=== PATIENT | female | born 1980 | race Caucasian/White ===

== ENCOUNTER → 2019-11-26 14:30 | Outpatient (BNVA) | payer MEDICAID, SELFPAY | PROVIDERS: Family Provider Nurse Practitioner; PCP Nurse Practitioner Family; Visit Provider Nurse Practitioner Family | DX: E03.9 Hypothyroidism, unspecified (principal); K21.9 Gastro-esophageal reflux disease without esophagitis; G47.10 Hypersomnia, unspecified | CPT/HCPCS: 80053; 84436; 84443; 84480; 85025 ==

== ENCOUNTER 2019-12-02 13:20 | Outpatient (CLI) | payer MEDICAID, SELFPAY ==
--- NOTE | 2019-12-02 14:15 | US_ITS ---
WS: [id number] THYROID ULTRASOUND HISTORY: hypothyroidism COMPARISON: None available. Right lobe: 3.0 cm x 1.2 cm x 1.6 cm. Volume: 2.8 cm3. Normal size and echotexture. No significant are dominant nodules are present. Left lobe: 3.3 cm x 1.2 cm x 1.0 cm. Volume: 2.2 cm3. Normal size and echotexture. No significant or dominant nodules are present. Isthmus: 0.3 mm. US/US thyroid [id number] IMPRESSION: Normal thyroid ultrasound.
== END 2019-12-02 13:21 | disposition home or self-care (01) ==
PROVIDERS: Family Provider Nurse Practitioner Family; PCP Nurse Practitioner Family; Visit Provider Nurse Practitioner Family
DX: E03.9 Hypothyroidism, unspecified (principal)
CPT/HCPCS: 76536

== ENCOUNTER 2019-12-18 09:06 | Outpatient (CLI) | payer MEDICAID, SELFPAY ==
--- NOTE | 2019-12-18 10:15 | US_ITS ---
WS: [id number] ULTRASOUND ABDOMEN CLINICAL INFORMATION: elevated liver enzymes COMPARISON: None. FINDINGS: Liver Size: Enlarged Craniocaudal length: 16.6 cm. Echogenicity: Normal. Surface nodularity: None. Mass (size and location): None. Bile ducts Intrahepatic ducts: Normal. Common bile duct diameter: 3.6 mm. Gallbladder Removed Pancreas Normal as visualized. Right kidney: Normal. Hydronephrosis: None. Size: 9.4 cm x 3.6 cm x 4.5 cm Abdominal aorta and IVC Visualized portions are normal. Ascites: None. US/US liver [id number] IMPRESSION: 1. Hepatomegaly measuring 16.6 cm 2. Gallbladder has been removed. 3. No hydronephrosis in right kidney.
== END 2019-12-18 09:07 | disposition home or self-care (01) ==
PROVIDERS: Family Provider Nurse Practitioner Family; PCP Nurse Practitioner Family; Visit Provider Nurse Practitioner Family
DX: R74.8 Abnormal levels of other serum enzymes (principal); R16.0 Hepatomegaly, not elsewhere classified
CPT/HCPCS: 76705

== ENCOUNTER → 2019-12-21 11:49 | Outpatient (BNVA) | payer MEDICAID, SELFPAY | PROVIDERS: Family Provider Nurse Practitioner Family; PCP Nurse Practitioner Family; Visit Provider Counselor Professional | DX: F41.1 Generalized anxiety disorder (principal) | CPT/HCPCS: 90834 ==

== ENCOUNTER → 2020-01-18 10:24 | Outpatient (BNVA) | payer MEDICAID, SELFPAY | PROVIDERS: Family Provider Nurse Practitioner Family; PCP Nurse Practitioner Family; Visit Provider Nurse Practitioner | DX: F42.4 Excoriation (skin-picking) disorder (principal); F41.1 Generalized anxiety disorder; F33.0 Major depressive disorder, recurrent, mild | CPT/HCPCS: 99213 ==

== ENCOUNTER 2020-02-10 02:11 | Emergency (ER) | payer MEDICAID, SELFPAY | END 2020-02-10 03:54 | disposition admitted as inpatient to this hospital (09) | LOC: ER 03-03 12:17 | PROVIDERS: Emergency Provider Emergency Medicine; Family Provider Nurse Practitioner Family; PCP Nurse Practitioner Family | DX: Z01.89 Encounter for other specified special examinations (principal) ==

== ENCOUNTER 2020-02-10 02:11 | Observation (INO) | payer MEDICAID, SELFPAY ==
[2020-02-10] VITALS (15 sets, daily range): BP systolic 92–141; BP diastolic 47–102; PULSE 69–92; RESP 12–22; TEMP 36.4–37.1; O2SAT 94–100; BMI 42.5
--- NOTE | 2020-02-10 02:14 | ED_ITS ---
Entered by Hanna Burnham, acting as scribe for Alhaji Guan MD HPI - Skin/Abscess/Foreign Bdy General: Chief complaint: Airway/Esophagus Foreign Body Stated complaint: FOOD STUCK IN THROAT Time Seen by Provider: 02/10/20 02:14 History of Present Illness: HPI narrative: 39 yo f came to the er by [facility] for foreign body stuck in throat. Onset was 2300 last night. Pt states that she ate a piece of meat and it got stuck in her throat, usually she said that she throws up and it comes back up and this time is has not came back up this time. Pt said that she has tried drinking soda and water to get it down. Pt said that she has been vomiting and also has a headache because of vomiting. MD complaint: foreign body (peice of meat) Onset (ago): day(s) (2300 last night ) Tetanus up to date: unsure Location: neck Severity: mild Quality: foreign body sensation Pain Consistency: constant Relieving factors: none Exacerbating factors: none Context: none Associated symptoms: Reports vomiting; Deny chills or fever(s) Treatments prior to arrival: other (tried drinking some fluids to help it pass and it did not work) Review of Systems General: Reports: other (negative unless marked) Const: Denies: fever, chills, body aches or change in appetite Eyes: Denies: blurry vision or eye discomfort ENMT: Reports: throat pain Card: Denies: chest pain Resp: Denies: shortness of breath GI: Reports: vomiting : Denies: painful urination Musc: Denies: neck pain or back pain Skin/Breast: Denies: rash Neuro: Reports: headache Psych: Denies: depression David/Lymph: Denies: easy bruising All/Imm: Denies: hives PFSH ED PFSH: Medical History (Updated 02/10/20 @ 02:59 by Alhaji Guan MD) Chronic GERD Excoriation (skin-picking) disorder Generalized anxiety disorder Hypothyroidism Major depressive disorder, recurrent, mild Family History (Updated 11/26/19 @ 13:55 by Hanna Galindo LPN) Father Cancer stomach Heart disease Stroke Mother Hypertension Hyperlipidemia Family/Other Cancer breast Social History (Updated 11/26/19 @ 13:56 by Hanna Galindo LPN) Smoking and tobacco status: never smoked Smoking risk assessment/counseling performed?: No Alcohol intake: never Lives independently: Yes Household members: significant other Marital status: Single History of recent travel: No Female Reproductive History: Para: 1 Physical Exam Const: COMMON NORMALS: no apparent distress, oriented x3 and healthy appearing HENMT: COMMON NORMALS: normocephalic and head/scalp atraumatic HEAD & SCALP: normocephalic and atraumatic Eye: COMMON NORMALS: PERRL and EOMs intact bilaterally PUPIL: Yes PERRL Neck/C-Spine: COMMON NORMALS: full ROM and supple Chest: COMMONS NORMALS: inspection of chest normal and palpation of chest normal Resp: COMMON NORMALS: normal respiratory effort, no retractions, no use of ac cessory muscles and clear to auscultation bilaterally AUSCULTATION: clear to auscultation bilaterally Cardio: COMMON NORMALS: regular rate, regular rhythm and no murmurs RATE: regular rate RHYTHM: regular rhythm GI: COMMON NORMALS: normal to inspection, nondistended, normoactive bowel sounds, soft to palpation, non-tender and no masses PALPATION: Yes soft Extremity: COMMON NORMALS: normal to inspection and full ROM Neuro: COMMON NORMALS: oriented x3, moves all extremities and no focal motor deficits Psych: COMMON NORMALS: mental status grossly normal, thought process normal and cooperative THOUGHT PROCESS: normal thought process Skin: COMMON NORMALS: no rashes or lesions noted and no wounds GENERAL SKIN EXAM: no rashes or lesions noted Course Vital Signs: Vital signs: Vital Signs Temperature 98.2 F 02/10/20 02:14 Pulse Rate 87 02/10/20 02:14 Respiratory Rate 20 H 02/10/20 02:14 Blood Pressure 141/102 02/10/20 02:14 Pulse Oximetry 99 02/10/20 02:14 MDM - Skin/Abscess/Foreign Bdy MDM Narrative: Medical decision making narrative: Patient presents with an esophageal food impaction. Patient given glucagon and nitro and has not been able to pass a foreign body. I spoke to Dr. Pop who recommended admission and he is to take her to the OR at 7 AM to remove the food impaction. Patient has been stable while in the ER. Imaging Data^: CXR: Attestation: I personally reviewed and interpreted this imaging study as follows: My impression: no acute abnormality xr soft tissue neck: Attestation: I personally reviewed and interpreted this imaging study as follows: My impression: no acute abnormality Discharge Plan Discharge Patient Disposition: Admitted As Inpatient Clinical Impression: Food impaction of esophagus Qualifiers: Encounter type: initial encounter Qualified Code(s): T18.128A - Food in esophagus causing other injury, initial encounter Condition: Stable Referrals: Pamella Masterson FNP-C [Primary Care Provider] - Coding Level of Care Code ED Substation Supervisor for Chg Fwd Exam Comprehensive The documentation recorded by the Tej ozuna Stephanie Lyn, accurately reflects the service I personally performed and the decisions made by me, Alhaji Guan MD
[2020-02-10] MEDS: nitroglycerin 0.4 mg sublingual Tablet SUBLINGUAL (02:27)
--- NOTE | 2020-02-10 02:59 | XR_ITS ---
WS: [id number] SOFT TISSUE NECK 2 VIEW(S) TECHNIQUE: AP and lateral views of the neck in soft tissue technique are performed. HISTORY: food impaction COMPARISON: None available. The lateral projection there is no dilatation or distention of the hypopharynx. Epiglottis is normal. Soft tissues in the esophagus at the C6-7 level are obscured by the patient's shoulders. On the AP r adiograph there is slight narrowing at the C5-6 level. Epiglottis is normal. XR/XR soft tissue neck [id number] IMPRESSION: Mild narrowing of the esophagus at the C5-6 level. No distention of the hypopha rynx. For further evaluation barium swallow can be obtained.
--- NOTE | 2020-02-10 02:59 | XR_ITS ---
WS: [id number] PORTABLE CHEST HISTORY: esophageal foreign body COMPARISON: None available. Lungs are clear and well expanded. No pleural effusion or pneumothorax. Cardiac size: Normal. Mediastinum/Aorta: Normal mediastinum. No osseous abnormality seen. XR/XR chest 1V portable [id number] IMPRESSION: Unremarkable portable chest.
[2020-02-10 03:23] LABS: Basophils % 0.3 %; Eosinophils # 0.1 10^3/uL (0.0-0.8); Eosinophils % 0.6 %; Hematocrit 44.4 % (37.0-47.0); Lymphocytes # 1.5 10^3/uL (0.8-4.8); Mean Corpuscular HGB Conc 31.5 g/dL (30.0-36.0); Mean Corpuscular Hemoglobin 27.8 pg (28.0-34.0); Mean Corpuscular Volume 88.3 fL (81-99); Mean Platelet Volume 10.2 fL (7.4-10.4); Monocytes # 0.4 10^3/uL (0.2-0.9); Monocytes % 4.3 %; Neutrophils # 7.3 10^3/uL (1.8-7.7); Neutrophils % 78.5 %; Nucleated Red Blood Cells % 0 %; Platelet Count 338 10^3/cmm (130-400); Red Blood Count 5.03 10^6/uL (4.1-5.3); Red Cell Distribution Width 12.4 % (12.1-15.1); White Blood Count 9.3 10^3/uL (4.0-10.0)
[2020-02-10] MEDS: sodium chloride 0.9% 1,000 ML 100 ML IV (05:01)
--- NOTE | 2020-02-10 05:24 | P.HP_ITS ---
Same Day Surgery H&P Indication for Procedure/HPI DATE OF PROCEDURE: February 10, 2020 CHIEF COMPLAINT/INDICATIONFOR SURGICAL PROCEDURE: Difficulty in swallowing PREOP DIAGNOSIS: Food Impaction PLANNED PROCEDRUE: Esophagogastroduodenoscopy with possible food disimpaction Chief Complaint: I have a piece of meat stuck in my throat History of present illness: This is a pleasant 39 years old female patient with history of GERD and anxiety and depression, patient had her dinner about 11 PM in the form of pull pork and she had food impaction and had difficulty in swallowing w multiple episodes of vomiting without obvious comfort, subsequently the patient presented to the emergency department where she was evaluated and undergone x-rays of the neck and the chest that showed negative findings, also upon further inquiry patient denies any hematemesis yet she does complain of some discomfort when she swallows likely due to repeated vomiting. She reports that she had previous episodes before but she never had to come to the hospital with that regard also she does have dentures but the lower part are not fitting well and yesterday she was chewing without them. General surgery was consulted for further evaluation and potential management ROS All systems have been reviewed reviewed negative except as per the above Medications/Allergies* Home Medications Medication Instructions Recorded Confirmed Type erenumab-aooe SUBCUT 11/26/19 01/18/20 History ibuprofen 800 mg tablet 800 mg PO ONCE PRN tab 11/26/19 01/18/20 History sumatriptan succinate 50 mg tablet 50 mg PO ONCE PRN 11/26/19 01/18/20 History prenat.vits,yovanny,asi-hksm-umbdh 1 tab PO DAILY 01/18/20 01/18/20 History Allergies/Adverse Reactions Allergy/AdvReac Type Severity Reaction Status Date / Time codeine Allergy swelling Verified 02/10/20 05:27 Penicillins Allergy rash Verified 02/10/20 05:27 tetracycline Allergy vomiting Verified 02/10/20 05:27 Current Medications: Generic Name Dose Route Start Last Admin Trade Name Freq PRN Reason Stop Dose Admin Sodium Chloride 1,000 mls @ 100 mls/hr 02/10/20 04:19 02/10/20 05:01 Sodium Chloride 0.9% IV 100 mls/hr .Q10H IRAJ Administration Pertinent History/Comorbid Conditions* Medical History (Updated 02/10/20 @ 02:59 by Alhaji Guan MD) Chronic GERD Excoriation (skin-picking) disorder Generalized anxiety disorder Hypothyroidism Major depressive disorder, recurrent, mild Family History (Updated 11/26/19 @ 13:55 by Hanna Galindo LPN) Heart disease Father Hyperlipidemia Mother Cancer Father stomach Family/Other breast Hypertension Mother Stroke Father Social History Smoking and tobacco status: never smoked Smoking risk assessment/counseling performed?: No Alcohol intake: never Lives independently: Yes Household members: significant other Marital status: Single History of recent travel: No Pertinent Exam Findings alert, oriented x 3, clear to auscultation bilaterally, regular rate & rhythm and procedure specific exam findings (Head and neck examination PERRLA no masses no cervical lymphadenopathy no jaundice and no crepitus) Abdominal examination nontender nondistended soft no organomegaly or peritonitis or guarding Obese Recommendations Surgery/Procedure today (After thorough history physical examination and reviewing the chart and images with my personal interpretation, I counseled the patient for EGD and possible food disimpaction in the OR.) Other Plans: Indications risks benefits and alternatives all discussed with the patient and she did agree to proceed. Informed consent per chart Coding Level of Care Code Acute Underwriting Support Specialist for [employer]
--- NOTE | 2020-02-10 06:04 | PC.NURSE ---
Patient to surgery.
--- NOTE | 2020-02-10 06:30 | P.ANESASSM_ITS ---
Pre-Anesthetic Assessment Pre-Anesthetic Assessment: Height/Weight: Height 1.6 m Weight 95.708 kg Temp Pulse Resp BP Pulse Ox 98.4 F 92 17 131/84 96 02/10/20 04:15 02/10/20 04:15 02/10/20 04:15 02/10/20 04:15 02/10/20 04:15 Preop Diagnosis: Food Impaction Proposed Procedure: Operation Date: 02/10/20 07:00 Proposed Procedures p EGD(Not Applicable) - Chace Pop MD Last intake: Intake Last Liquid Date 02/09/20 Last Liquid Time 23:00 Last Solid Date 02/09/20 Last Solid Time 23:00 Exam: Pre-Anes Outpt Exam: alert, oriented x 3, clear to auscultation bilaterally and regular rate & rhythm Airway: Submandibular: WNL Cervical ROM: WNL MP: 1 Additional comments: edentulous GI: GI: GERD Metabolic: Metabolic: Thyroid (replacement x 10y, without recent change) Musc/skel: Musc/skel: Lower Back Pain Comments: nonradiating Neuropsych: Neuropsych: Anxiety, Depression and CARLISLE Anesthetic Plan: ASA status: 3E Anesthesia: General and Regional (specify b elow) Meds/Allergies Current Medications: Current Medications Generic Name Dose Route Start Last Admin Trade Name Freq PRN Reason Stop Dose Admin Sodium Chloride 1,000 mls @ 100 m ls/hr 02/10/20 04:19 02/10/20 05:01 Sodium Chloride 0.9% IV 100 mls/hr .Q10H IRAJ Administration PFSH Anesthesia PFSH: Medical History (Updated 02/10/20 @ 02:59 by Alhaji Guan MD) Chronic GERD Excoriation (skin-picking) disorder Generalized anxiety disorder Hypothyroidism Major depressive disorder, recurrent, mild Family History (Updated 11/26/19 @ 13:55 by Hanna Galindo LPN) Father Cancer stomach Heart disease Stroke Mother Hypertension Hyperlipidemia Family/Other Cancer breast Social History (Updated 11/26/19 @ 13:56 by Hanna Galindo LPN) Smoking and tobacco status: never smoked Smoking risk assessment/counseling performed?: No Alcohol intake: never Lives independently: Yes Household members: significant other Marital status: Single History of recent travel: No Female Reproductive History: Para: 1 Data Anesthesia CBC & Chem 7: 02/10/20 03:08 Other Labs: Laboratory Results - last 48 hr 02/10/20 03:08 WBC 9.3 RBC 5.03 Hgb 14.0 Hct 44.4 MCV 88.3 MCH 27.8 L MCHC 31.5 RDW 12.4 Plt Count 338 MPV 10.2 Neut % (Auto) 78.5 Lymph % (Auto) 16.0 [place] % (Auto) 4.3 Eos % (Auto) 0.6 Baso % (Auto) 0.3 Neut # (Auto) 7.3 Lymph # (Auto) 1.5 [place] # (Auto) 0.4 Eos # (Auto) 0.1 Baso # (Auto) 0.0 Nucleated RBC % (auto) 0 Nucleated RBCs # 0.0 Cardiac Studies: No Data to Display
[2020-02-10] MEDS: sodium chloride 0.9% 1,000 ML 30 ML IV (06:44)
[2020-02-10] MEDS: midazolam 1 mg/mL INJ 2 mL 2 MG IVP (06:45)
--- NOTE | 2020-02-10 07:24 | FL_ITS ---
WS: [id number] Modified barium swallow, 02/10/2020 Clinical Data: Oropharyngeal dysphagia Comparison: None. Fluoroscopy time: 1.6 minutes. Findings: Patient had difficulty in chewing. When swallowing there was minimal residue in the oral cavity on th e sweta cracker. There was no penetration or aspiration. The patient swallowed the barium tablet whi ch passed normally through the pharynx and into the esophagus and finally the stomach. FL/FL barium swallow modifd [id number] Impression: 1. Difficulty in chewing. 2. No significant pharyngeal residue, penetration or aspiration.
[2020-02-12 13:17] LABS: H. Pylori / CLO Test Negative
== END 2020-02-10 10:00 | disposition home or self-care (01) ==
LOC: ER 03:20 → MEDSURG 03:37
PROVIDERS: Admitting Provider Surgery; Emergency Provider Emergency Medicine; Family Provider Nurse Practitioner Family; PCP Nurse Practitioner Family; Visit Provider Surgery
PROC: 0DJ08ZZ Inspection of Upper Intestinal Tract, Via Natural or Artificial Opening Endoscopic (ICD-10-PCS; CPT 43235; principal; 2020-02-10 07:00)
DX: T18.128A Food in esophagus causing other injury, initial encounter (principal); X58.XXXA Exposure to other specified factors, initial encounter; K21.9 Gastro-esophageal reflux disease without esophagitis; F41.9 Anxiety disorder, unspecified; F33.9 Major depressive disorder, recurrent, unspecified; Z82.49 Family history of ischemic heart disease and other diseases of the circulatory system
CPT/HCPCS: 12345; 36415; 43239; 43247; 70360; 71045; 74230; 85025; 87077; 92611; 96372; 99282; 99285; G0378; J0330; J1610; J2001; J2250; J2704; J3010; J7030

== ENCOUNTER 2020-02-10 02:11 | Emergency (ER) | payer MEDICAID, SELFPAY | END 2020-02-10 03:54 | disposition admitted as inpatient to this hospital (09) | LOC: ER 02-12 11:43 | PROVIDERS: Emergency Provider Emergency Medicine; Family Provider Nurse Practitioner Family; PCP Nurse Practitioner Family | DX: Z01.89 Encounter for other specified special examinations (principal) ==

== ENCOUNTER 2020-03-14 09:31 | Outpatient (CLI) | payer MEDICAID, SELFPAY ==
--- NOTE | 2020-03-14 09:51 | FL_ITS ---
WS: [id number] MODIFIED BARIUM SWALLOW HISTORY: Other dysphagia FLUOROSCOPY TIME: 1.1 minutes. Modified barium swallow was performed by the speech pathologist. Fluoroscopy was provided with the pa tient in a lateral projection. Multiple food consistencies were provided. Patient swallowed all food consistencies without difficulty. No laryngeal penetration or aspiration. Barium tablet was swallowed without difficulty. FL/FL barium swallow modifd [id number] IMPRESSION: Normal modified swallowing exam. Please see speech therapist report also for recommendations.
== END 2020-03-14 09:32 | disposition home or self-care (01) ==
LOC: RAD 09:35
PROVIDERS: Family Provider Nurse Practitioner Family; PCP Nurse Practitioner Family; Visit Provider Surgery
DX: R13.19 Other dysphagia (principal)
CPT/HCPCS: 74230; 92611

== ENCOUNTER → 2020-04-20 08:10 | Outpatient (BNVA) | payer MEDICAID, SELFPAY | PROVIDERS: Family Provider Nurse Practitioner Family; PCP Nurse Practitioner Family; Visit Provider Counselor Professional | DX: F33.0 Major depressive disorder, recurrent, mild (principal); F41.1 Generalized anxiety disorder; F42.4 Excoriation (skin-picking) disorder | CPT/HCPCS: 90832; 90834 ==

== ENCOUNTER → 2020-04-21 07:42 | Outpatient (BNVA) | payer MEDICAID, SELFPAY | PROVIDERS: Family Provider Nurse Practitioner Family; PCP Nurse Practitioner Family; Visit Provider Nurse Practitioner | DX: F33.0 Major depressive disorder, recurrent, mild (principal); F41.1 Generalized anxiety disorder | CPT/HCPCS: 80053; 82607; 84443; 99214 ==

== ENCOUNTER → 2020-05-06 09:19 | Outpatient (BNVA) | payer MEDICAID, SELFPAY | PROVIDERS: Family Provider Nurse Practitioner Family; PCP Nurse Practitioner Family; Visit Provider Nurse Practitioner | DX: Z11.59 Encounter for screening for other viral diseases (principal) | CPT/HCPCS: 86705; 86706; 86709; 86803; 87340 ==

== ENCOUNTER 2020-05-17 20:00 | Outpatient (CLI) | payer MEDICAID, SELFPAY | END 2020-05-17 20:01 | disposition home or self-care (01) | LOC: SLEEP 05-18 10:10 | PROVIDERS: Family Provider Nurse Practitioner Family; PCP Nurse Practitioner Family; Visit Provider Nurse Practitioner Family | DX: G47.10 Hypersomnia, unspecified (principal) | CPT/HCPCS: 95810 ==

== ENCOUNTER → 2020-05-25 08:17 | Outpatient (BNVA) | payer MEDICAID, SELFPAY | PROVIDERS: Family Provider Nurse Practitioner Family; PCP Nurse Practitioner Family; Visit Provider Counselor Professional | DX: F41.1 Generalized anxiety disorder (principal); F33.0 Major depressive disorder, recurrent, mild | CPT/HCPCS: 90834 ==

== ENCOUNTER 2020-05-26 06:58 | Outpatient (CLI) | payer MEDICAID, SELFPAY ==
--- NOTE | 2020-05-26 07:15 | US_ITS ---
WS: [id number] RIGHT UPPER QUADRANT ULTRASOUND HISTORY: Increased liver enzymes COMPARISON: 12/18/2019 Liver: 13.1 cm in length. Normal size and echogenicity with no intrahepatic dilatation. No mass. Gallbladder: Prior cholecystectomy. CBD: 0.3 cm Pancreas: Pancreas is normal. There is an ovoid cystic mass measuring 2.0 x 2.0 cm just to the RIGHT and superior to the pancreatic head. Not identified on the prior study. Right kidney: 9.9 cm in length. Normal echogenicity with no mass or hydronephrosis. Aorta and IVC: Unremarkable. No ascites. US/US liver [id number] IMPRESSION: 1. Prior cholecystectomy. 2. Negative liver. 3. Cystic mass with a maximum diameter of 2.0 cm superior and to the RIGHT at pancreatic head of undetermined etiology. Could be fluid in the duodenum. This was not present on the prior study. Recommend additional follow-up. Short-term ultrasound follow-up in 6-[address] evaluation.
== END 2020-05-26 06:59 | disposition home or self-care (01) ==
PROVIDERS: PCP Nurse Practitioner Family; Visit Provider Nurse Practitioner
DX: R94.5 Abnormal results of liver function studies (principal); R16.0 Hepatomegaly, not elsewhere classified
CPT/HCPCS: 76705

== ENCOUNTER → 2020-06-22 08:56 | Outpatient (BNVA) | payer MEDICAID, SELFPAY | PROVIDERS: PCP Nurse Practitioner Family; Visit Provider Counselor Professional | DX: F41.1 Generalized anxiety disorder (principal); F33.0 Major depressive disorder, recurrent, mild | CPT/HCPCS: 90834 ==

== ENCOUNTER 2020-06-30 20:00 | Outpatient (CLI) | payer MEDICAID, SELFPAY | END 2020-06-30 20:01 | disposition home or self-care (01) | LOC: SLEEP 07-01 08:50 | PROVIDERS: PCP Nurse Practitioner Family; Visit Provider Nurse Practitioner | DX: G47.33 Obstructive sleep apnea (adult) (pediatric) (principal) | CPT/HCPCS: 95811 ==

== ENCOUNTER → 2020-07-04 07:33 | Outpatient (BNVA) | payer MEDICAID, SELFPAY | PROVIDERS: PCP Nurse Practitioner Family; Visit Provider Psychiatry & Neurology Psychiatry | DX: F33.0 Major depressive disorder, recurrent, mild (principal); F41.1 Generalized anxiety disorder | CPT/HCPCS: 99214 ==

== ENCOUNTER → 2020-07-06 08:32 | Outpatient (BNVA) | payer MEDICAID, SELFPAY | PROVIDERS: PCP Nurse Practitioner Family; Visit Provider Counselor Professional | DX: F41.1 Generalized anxiety disorder (principal); F33.0 Major depressive disorder, recurrent, mild | CPT/HCPCS: 90834 ==

== ENCOUNTER 2020-07-12 09:04 | Outpatient (CLI) | payer MEDICAID, SELFPAY ==
--- NOTE | 2020-07-12 09:30 | US_ITS ---
WS: [id number] ULTRASOUND ABDOMEN LIMITED CLINICAL INFORMATION: pancreas cyst COMPARISON: August 07, 2018 December 18, 2019 FINDINGS: Liver Size: Upper limits of normal Craniocaudal length: 16.1 cm. Echogenicity: Fatty infiltration Surface nodularity: None. Mass (size and location): None. Bile ducts Intrahepatic ducts: Normal. Common bile duct diameter: 0.4 cm. Gallbladder Removed Pancreas Again seen is the hypoechoic lesion medial to the head of the pancreas measuring 2.6 x 1.6 x 2.2 CM. Recommend further evaluation with CT Right kidney: Normal. Hydronephrosis: None. Size: 9.1 cm x 3.9 cm x 3.8 cm. Abdominal aorta and IVC Visualized portions are normal. Ascites: None. US/US liver [id number] IMPRESSION: 1. Again seen is the hypoechoic lesion medial to the head of pancreas measurin g 2.6 x 1.6 x 2.2 CM. This is indeterminant but appears unchanged from previous . Recommend further evaluation with contrast-enhanced CT of the abdomen and pel vis with pancreatic protocol for better anatomic detail. 2. No other significant changes.
== END 2020-07-12 09:05 | disposition home or self-care (01) ==
LOC: US 09:07
PROVIDERS: PCP Nurse Practitioner Family; Visit Provider Nurse Practitioner
DX: K86.2 Cyst of pancreas (principal); K86.89 Other specified diseases of pancreas
CPT/HCPCS: 76705

== ENCOUNTER → 2020-07-13 08:52 | Outpatient (BNVA) | payer MEDICAID, SELFPAY | PROVIDERS: PCP Nurse Practitioner Family; Visit Provider Nurse Practitioner Family | DX: E03.9 Hypothyroidism, unspecified (principal); K21.9 Gastro-esophageal reflux disease without esophagitis; K86.9 Disease of pancreas, unspecified | CPT/HCPCS: 80053; 80061; 84443; 85025 ==

== ENCOUNTER 2020-07-19 10:59 | Outpatient (CLI) | payer MEDICAID, SELFPAY ==
[2020-07-19] MEDS: iohexol 300 mg/mL 100 mL Btl IV (11:20)
--- NOTE | 2020-07-19 11:30 | CT_ITS ---
WS: [id number] CT ABDOMEN PELVIS TECHNIQUE: Contrast-enhanced CT of the abdomen and pelvis with coronal and sagittal reformatted image s. CLINICAL INFORMATION: pancreatic lesion/mass COMPARISON: Ultrasound July 12, 2020 DLP: 1138.[address] scans at [facility] use at least one of these dose optimization techniques: automat ed exposure control; mA and/or kV adjustment per patient size (includes targeted exams where dose is matched to clinical indication); or iterative reconstruction. FINDINGS: Mild diffuse fatty infiltration of the liver. Cholecystectomy clips. Normal portal vein and splenic v ein. Normal spleen. Lung bases are well aerated. Adrenal glands are normal. Normal renal parenchymal enhancement. No hydronephrosis. Pancreatic head is normal in appearance. No evidence of pancreatic m ass or lesion. Findings seen on prior ultrasound likely represents small bowel. Normal pancreatic duct. Incidental fat-containing umbilical hernia. Sigmoid diverticulosis. No evidence of acute diverticulit is. No evidence of small or large bowel obstruction. Fat-containing umbilical hernia. No free fluid i n the pelvis. Normal lumbar spine. CT/CT abdomen pelvis w con* [id number] IMPRESSION: 1. Pancreas is normal in appearance. No evidence of pancreatic head mass. Find ings on prior ultrasound likely due to small bowel. 2. Normal pancreatic duct. 3. Prior cholecystectomy. 4. Mild diffuse fatty infiltration liver. 5. Fat-containing umbilical hernia. 6. A few sigmoid diverticuli. No evidence of acute diverticulitis.
== END 2020-07-19 11:00 | disposition home or self-care (01) ==
LOC: RADWPI 11:02
PROVIDERS: PCP Nurse Practitioner Family; Visit Provider Nurse Practitioner Family
DX: K86.9 Disease of pancreas, unspecified (principal); K76.0 Fatty (change of) liver, not elsewhere classified; K42.9 Umbilical hernia without obstruction or gangrene; K57.30 Diverticulosis of large intestine without perforation or abscess without bleeding
CPT/HCPCS: 74177; Q9967

== ENCOUNTER → 2020-07-20 09:28 | Outpatient (BNVA) | payer MEDICAID, SELFPAY | PROVIDERS: PCP Nurse Practitioner Family; Visit Provider Counselor Professional | DX: F41.1 Generalized anxiety disorder (principal) | CPT/HCPCS: 90834 ==

== ENCOUNTER → 2020-08-03 08:43 | Outpatient (BNVA) | payer MEDICAID, SELFPAY | PROVIDERS: PCP Nurse Practitioner Family; Visit Provider Counselor Professional | DX: F41.1 Generalized anxiety disorder (principal) | CPT/HCPCS: 90832 ==

== ENCOUNTER → 2020-08-10 08:37 | Outpatient (BNVA) | payer MEDICAID, SELFPAY | PROVIDERS: PCP Nurse Practitioner Family; Visit Provider Counselor Professional | DX: F41.1 Generalized anxiety disorder (principal) | CPT/HCPCS: 90832 ==

== ENCOUNTER → 2020-08-23 08:38 | Outpatient (BNVA) | payer MEDICAID, SELFPAY | PROVIDERS: PCP Nurse Practitioner Family; Visit Provider Psychiatry & Neurology Psychiatry | DX: F33.0 Major depressive disorder, recurrent, mild (principal); F41.1 Generalized anxiety disorder; E66.9 Obesity, unspecified | CPT/HCPCS: 99213 ==

== ENCOUNTER → 2020-08-24 08:58 | Outpatient (BNVA) | payer MEDICAID, SELFPAY | PROVIDERS: PCP Nurse Practitioner Family; Visit Provider Counselor Professional | DX: F33.41 Major depressive disorder, recurrent, in partial remission (principal) | CPT/HCPCS: 90791 ==

== ENCOUNTER → 2020-09-07 14:57 | Outpatient (BNVA) | payer MEDICAID, SELFPAY | PROVIDERS: PCP Nurse Practitioner Family; Visit Provider Nurse Practitioner Family | DX: Z20.828 Contact with and (suspected) exposure to other viral communicable diseases (principal) | CPT/HCPCS: 87635 ==

== ENCOUNTER → 2020-09-21 08:17 | Outpatient (BNVA) | payer MEDICAID, SELFPAY | PROVIDERS: PCP Nurse Practitioner Family; Visit Provider Counselor Professional | DX: F41.1 Generalized anxiety disorder (principal) | CPT/HCPCS: 90834; 90832 ==

== ENCOUNTER → 2020-10-05 09:37 | Outpatient (BNVA) | payer MEDICAID, SELFPAY | PROVIDERS: PCP Nurse Practitioner Family; Visit Provider Nurse Practitioner Family | DX: M25.551 Pain in right hip (principal) | CPT/HCPCS: 73502 ==

== ENCOUNTER → 2020-10-25 08:09 | Outpatient (BNVA) | payer MEDICAID, SELFPAY | PROVIDERS: PCP Nurse Practitioner Family; Visit Provider Psychiatry & Neurology Psychiatry | DX: F41.1 Generalized anxiety disorder (principal); F33.0 Major depressive disorder, recurrent, mild; E66.9 Obesity, unspecified | CPT/HCPCS: 99214 ==

== ENCOUNTER → 2020-11-21 08:19 | Outpatient (BNVA) | payer MEDICAID, SELFPAY | PROVIDERS: PCP Nurse Practitioner Family; Visit Provider Counselor Professional | DX: F33.0 Major depressive disorder, recurrent, mild (principal); F41.1 Generalized anxiety disorder | CPT/HCPCS: 90834 ==

== ENCOUNTER → 2020-11-28 11:10 | Outpatient (BNVA) | payer MEDICAID, SELFPAY | PROVIDERS: PCP Nurse Practitioner Family; Visit Provider Obstetrics & Gynecology | DX: Z12.4 Encounter for screening for malignant neoplasm of cervix (principal); N92.6 Irregular menstruation, unspecified; N93.8 Other specified abnormal uterine and vaginal bleeding; N93.9 Abnormal uterine and vaginal bleeding, unspecified; R10.2 Pelvic and perineal pain; G89.29 Other chronic pain | CPT/HCPCS: 83001; 84146; 84443; 84702; 85025; 88175 ==

== ENCOUNTER → 2020-12-02 10:50 | Outpatient (BNVA) | payer MEDICAID, SELFPAY | PROVIDERS: PCP Nurse Practitioner Family; Visit Provider Obstetrics & Gynecology | DX: N85.4 Malposition of uterus (principal) | CPT/HCPCS: 76830 ==

== ENCOUNTER → 2020-12-05 08:49 | Outpatient (BNVA) | payer MEDICAID, SELFPAY | PROVIDERS: PCP Nurse Practitioner Family; Visit Provider Counselor Professional | DX: F33.0 Major depressive disorder, recurrent, mild (principal); F41.1 Generalized anxiety disorder | CPT/HCPCS: 90832 ==

== ENCOUNTER → 2020-12-20 07:55 | Outpatient (BNVA) | payer MEDICAID, SELFPAY | PROVIDERS: PCP Nurse Practitioner Family; Visit Provider Psychiatry & Neurology Psychiatry | DX: F41.1 Generalized anxiety disorder (principal); F33.0 Major depressive disorder, recurrent, mild; E66.9 Obesity, unspecified | CPT/HCPCS: 99214 ==

== ENCOUNTER 2021-02-28 13:57 | Outpatient (CLI) | payer MEDICAID, SELFPAY ==
--- NOTE | 2021-02-28 14:11 | CT_ITS ---
WS: [id number] CT HEAD TECHNIQUE: Noncontrast CT of the head obtained from the skullbase to the vertex. CLINICAL INFORMATION: S09.90XA - Unspecified injury of head, initial encounter COMPARISON: None. DLP: 992.[address] scans at [facility] use at least one of these dose optimization techniques: automat ed exposure control; mA and/or kV adjustment per patient size (includes targeted exams where dose is matched to clinical indication); or iterative reconstruction. FINDINGS: No evidence of intracranial hemorrhage or mass effect. Ventricular system and basal cisterns are midd[place] nt. No extra-axial fluid collections. No evidence of mass or mass effect. Normal jennings-white different iation. Paranasal sinuses and mastoid air cells are well aerated. .Normal visualized soft tissues. CT/CT head wo con* [id number] IMPRESSION: 1. No evidence of intracranial hemorrhage or mass effect. 2. Normal jennings-white differentiation. 3. No acute intracranial findings.
== END 2021-02-28 13:58 | disposition home or self-care (01) ==
LOC: RADWPI 14:02
PROVIDERS: PCP Nurse Practitioner Family; Visit Provider Nurse Practitioner Family
DX: S09.90XA Unspecified injury of head, initial encounter (principal); R11.0 Nausea; R51.9 Headache, unspecified; X58.XXXA Exposure to other specified factors, initial encounter
CPT/HCPCS: 70450

== ENCOUNTER → 2021-03-15 14:38 | Outpatient (BNVA) | payer MEDICAID, SELFPAY | PROVIDERS: PCP Nurse Practitioner Family; Visit Provider Nurse Practitioner Family | DX: E03.9 Hypothyroidism, unspecified (principal); M16.11 Unilateral primary osteoarthritis, right hip; G43.709 Chronic migraine without aura, not intractable, without status migrainosus; K21.9 Gastro-esophageal reflux disease without esophagitis | CPT/HCPCS: 80053; 80061; 84443; 85025 ==

== ENCOUNTER → 2021-06-19 10:41 | Outpatient (BNVA) | payer MEDICAID, SELFPAY | PROVIDERS: PCP Nurse Practitioner Family; Visit Provider Nurse Practitioner | DX: E78.5 Hyperlipidemia, unspecified (principal); E03.9 Hypothyroidism, unspecified; G43.709 Chronic migraine without aura, not intractable, without status migrainosus; M16.11 Unilateral primary osteoarthritis, right hip | CPT/HCPCS: 80053; 80061; 84443 ==

== ENCOUNTER → 2021-07-04 10:19 | Outpatient (BNVA) | payer MEDICAID, SELFPAY | PROVIDERS: PCP Nurse Practitioner Family; Visit Provider Psychiatry & Neurology Psychiatry | DX: F41.1 Generalized anxiety disorder (principal); F33.0 Major depressive disorder, recurrent, mild; Z79.899 Other long term (current) drug therapy | CPT/HCPCS: 83036; 99214 ==

== ENCOUNTER → 2022-01-05 10:24 | Outpatient (BNVA) | payer MEDICAID, SELFPAY | PROVIDERS: PCP Nurse Practitioner Family; Visit Provider Psychiatry & Neurology Psychiatry | DX: F33.0 Major depressive disorder, recurrent, mild (principal); F41.1 Generalized anxiety disorder | CPT/HCPCS: 99214 ==

== ENCOUNTER → 2022-01-17 15:12 | Outpatient (BNVA) | payer MEDICAID, SELFPAY | PROVIDERS: PCP Nurse Practitioner Family; Visit Provider Nurse Practitioner Family | DX: E03.9 Hypothyroidism, unspecified (principal); E78.5 Hyperlipidemia, unspecified; E11.9 Type 2 diabetes mellitus without complications | CPT/HCPCS: 80053; 80061; 83036; 84443; 85025 ==

== ENCOUNTER → 2022-02-02 08:47 | Outpatient (BNVA) | payer MEDICAID, SELFPAY | PROVIDERS: PCP Nurse Practitioner Family; Visit Provider Nurse Practitioner Family | DX: R74.8 Abnormal levels of other serum enzymes (principal) | CPT/HCPCS: 84075 ==

== ENCOUNTER → 2022-03-23 09:35 | Outpatient (BNVA) | payer MEDICAID, SELFPAY | PROVIDERS: PCP Nurse Practitioner Family; Visit Provider Nurse Practitioner Family | DX: R74.8 Abnormal levels of other serum enzymes (principal) | CPT/HCPCS: 82977 ==

== ENCOUNTER → 2022-03-30 10:37 | Outpatient (BNVA) | payer MEDICAID, SELFPAY | PROVIDERS: PCP Nurse Practitioner Family; Visit Provider Psychiatry & Neurology Psychiatry | DX: F33.0 Major depressive disorder, recurrent, mild (principal); F41.1 Generalized anxiety disorder; G43.709 Chronic migraine without aura, not intractable, without status migrainosus; E88.81 Metabolic syndrome and other insulin resistance | CPT/HCPCS: 99214 ==

== ENCOUNTER 2022-04-25 08:07 | Outpatient (CLI) | payer MEDICAID, SELFPAY ==
--- NOTE | 2022-04-25 08:30 | US_ITS ---
WS: [id number] Exam: US liver [id number] Date/Time of Exam: 04/25/2022 8:23 AM Reason For Exam: R74.8 - Abnormal levels of other serum enzymes The liver is not enlarged and measures 16 cm at greatest dimension. There is increased echogenicity o f the liver that might represent hepatic steatosis. No intrahepatic ductal dilatation noted. The comm on bile duct measures 5.3 mm at greatest diameter. The IVC is patent. The pancreas is unremarkable as visualized. The gallbladder is surgically absent. Flow in the portal vein is hepatopedal. The right kidney is unremarkable. No ascites. US/US liver [id number] IMPRESSION: 1. Increased echogenicity of the liver which may indicate hepatic steatosis. 2. No focal hepatic mass or nodule. No sign of intrahepatic ductal dilatation. 3. No other significant finding.
== END 2022-04-25 08:08 | disposition home or self-care (01) ==
LOC: RAD 08:08
PROVIDERS: PCP Nurse Practitioner Family; Visit Provider Nurse Practitioner Family
DX: R74.8 Abnormal levels of other serum enzymes (principal)
CPT/HCPCS: 76705

== ENCOUNTER → 2022-07-09 12:03 | Outpatient (BNVA) | payer MEDICAID, SELFPAY | PROVIDERS: PCP Nurse Practitioner Family; Visit Provider Nurse Practitioner Family | DX: Z20.822 Contact with and (suspected) exposure to COVID-19 (principal); Z11.52 Encounter for screening for COVID-19; J06.9 Acute upper respiratory infection, unspecified | CPT/HCPCS: 87635 ==

== ENCOUNTER 2022-11-18 14:26 | Emergency (ER) | payer MEDICAID, SELFPAY ==
[2022-11-18 14:32] VITALS: BP 139/94; PULSE 86; RESP 18; TEMP 37.2; O2SAT 100
--- NOTE | 2022-11-18 15:09 | PC.NURSE ---
ROUNDED ON PT IN WAITING ROOM PT IS IN NAD.
--- NOTE | 2022-11-18 17:52 | W.ED.GENADLT ---
HPI - General Adult General: Chief complaint: General Medical Stated complaint: possible syncope Time Seen by Provider: 11/18/22 15:15 History of Present Illness: 42 yo female patient presents to ER with cough congestion and excessive sleepiness. Pt states she has had this sleepiness for years but worse today. Pt c/o fever and generalized weakness. pt denies any chest pain or sob. pt denies any abd pain n/v/d. Pt denies any urinary symptoms Associated symptoms: Deny chest pain, confusion, diaphoresis, dyspnea, headache(s), nausea, rash, palpitations, syncope or vomiting Review of Systems Const: Denies: chills, body aches, change in appetite, change in weight or diaphoresis Eyes: Denies: change in vision, blurry vision, blind spots, photophobia, eye discomfort, eye discharge, eye redness, floaters or seeing flashes ENMT: Denies: throat pain, uvular edema, enlarged tonsils, odynophagia, hoarseness, mouth pain, swelling of lips/tongue, oral sores, bleeding gums, dental pain, dry mouth, ear or mastoid pain, ear discharge, change in hearing, tinnitus, disequilibrium, nasal discharge, post nasal drip or sinus pain Card: Denies: chest pain, palpitations, irregular heart rhythm, edema, swelling of feet/ankles, lightheadedness, syncope, pre-syncope, dyspnea on exertion, orthopnea, leg pain with exertion or acrocyanosis Resp: Denies: dyspnea, productive cough, wheezing, stridor, pain on inspiration, change in phlegm color, hemoptysis or chest congestion GI: Denies: abdominal pain, nausea, vomiting, hematemesis, dysphagia, diarrhea, constipation, GI cramping, change in bowel habits or rectal pain : Denies: flank pain, difficulty voiding, dysuria, urinary frequency, urinary urgency, urinary hesitancy or hematuria Musc: Denies: neck pain, back pain, extremity pain, extremity swelling, joint pain, joint swelling, joint redness, joint warmth or deformity Skin/Breast: Denies: rash, pruritus, erythema, sores, new lesions, changes in skin color or dry skin Neuro: Denies: headache(s), numbness in extremities, weakness in extremities, sensory changes, lack of coordination, difficulty walking, frequent falls, dizziness, vertigo, confusion, behavioral changes, Slurred speech present, difficulty communicating thoughts or seizure-like activity Psych: Denies: anxiety, depression, suicidal ideation or homicidal ideation Endo: Denies: polyuria, polydipsia, tired all the time, cold intolerance, excessive sweating, flushing, hot flashes or heat intolerance David/Lymph: Denies: easy bruising, easy bleeding, petechiae, purpura, enlarged lymph nodes or tender lymph nodes All/Imm: Denies: urticaria, throat swelling, tongue swelling, facial swelling, acute wheezing or itchy eyes PFSH ED PFSH: Medical History Chronic GERD Excoriation (skin-picking) disorder Generalized anxiety disorder Group B streptococcal carriage complicating Hyperlipidemia, mixed Hypothyroidism Irritable bowel syndrome with diarrhea Major depressive disorder, recurrent, mild Obstructive sleep apnea Surgical History History of cholecystectomy History of colonoscopy History of esophagogastroduodenoscopy (EGD) History of tubal ligation Hx of bilateral salpingectomy Family History Father Cancer stomach Heart disease Stroke Mother Hypertension Hyperlipidemia Diabetes Family/Other Breast cancer maternal aunt, diagnosed at unknown age Sister Diabetes Grandmother Diabetes paternal Denies family history of Colon cancer Ovarian cancer Anesthesia complication Bleeding disorder Uterine cancer Thyroid condition Social History Smoking and tobacco status: never smoked Second hand smoke exposure: No Smoking risk assessment/counseling performed?: No Alcohol intake: never Desire information about alcohol rehabilitation?: No Counseling given: No Desire information about substance/drug rehabilitation?: No Counseling given: No Adopted: No Caregiver/support person: No Lives independently: Yes Household members: significant other and children Housing: House Marital status: Single Number of children: 1 service: No Current occupational status: employed 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[employer] Pets and animals: Yes Pets & animals: dog(s) Current gender identity: Female Female Reproductive History: Para: 1 Physical Exam Const: COMMON NORMALS: no acute distress, average body habitus, patient oriented x3, no limitations, healthy appearing, alert and well nourished HENMT: COMMON NORMALS: normocephalic, EAC's normal, TM's normal bilaterally, Normal external nose present, Normal nasal mucous membranes and turbinates present, moist oral mucous membranes and oropharynx normal HEAD & SCALP: normocephalic NOSE: Normal external nose present and Normal nasal mucous membranes and turbinates present EXTERNAL AUDITORY CANAL: EAC's normal TYMPANIC MEMBRANE: TM's normal bilaterally THROAT: posterior oropharynx normal, tonsils normal and uvula midline; no uvular edema Eye: COMMON NORMALS: Equal, round and reactive pupils present PUPIL: Yes Equal, round and reactive pupils present Neck/C-Spine: COMMON NORMALS: full ROM, no lymphadenopathy, supple and no meningeal signs Lymph: LYMPHATIC: no lymphadenopathy noted Chest: COMMONS NORMALS: normal inspection of the chest and normal palpation of entire chest wall Resp: COMMON NORMALS: normal respiratory effort Cardio: COMMON NORMALS: regular rate and regular rhythm RATE: regular rate RHYTHM: regular rhythm Neuro: COMMON NORMALS: patient oriented x3 SENSORIUM/ORIENTATION: Yes alert MENINGEAL SIGNS: Yes no meningeal signs Skin: NARRATIVE SKIN EXAM: pink warm and dry Course Vital Signs: Vital signs: Vital Signs Temperature 98.9 F 11/18/22 14:32 Pulse Rate 75 11/18/22 17:53 Respiratory Rate 15 11/18/22 17:53 Blood Pressure 136/88 11/18/22 17:53 Pulse Oximetry 98 11/18/22 17:53 Oxygen Delivery Me thod 11/18/22 17:53 MDM - General Adult Medical Decision Making Patient is well appearing non toxic and in no acute distress. 42 yo female patient presents to ER with cough congestion and excessive sleepiness. Pt states she has had this sleepiness for years but worse today. Pt c/o fever and generalized weakness. pt denies any chest pain or sob. pt denies any abd pain n/v/d. Pt denies any urinary symptoms chest xray is without any acute findings. VSS. there is no evidence of meningeal irritation or hypoxemia. Pt is drinking soda at bedside. Pt is positive for flu a. i discussed home care as well as return precautions with patient Lab Data Laboratory Results HCG, Qual Negative (Negative) 11/18/22 17:45 Urine Color Straw (Yellow) 11/18/22 17:45 Urine Appearance Clear (CLEAR) 11/18/22 17:45 Urine pH 5 (5-7) 11/18/22 17:45 Ur Specific [place] 1.005 (1.005-1.030) 11/18/22 17:45 Urine Protein Neg (Negative) 11/18/22 17:45 Urine Glucose (UA) Norm (Normal) 11/18/22 17:45 Urine Ketones Negative (Negative) 11/18/22 17:45 Urine Blood Neg (Negative) 11/18/22 17:45 Urine Nitrate Negative (Negative) 11/18/22 17:45 Urine Bilirubin Neg (Negative) 11/18/22 17:45 Urine Urobilinogen Norm mg/dL (Negative) 11/18/22 17:45 Ur Leukocyte Esterase Negative (Negative) 11/18/22 17:45 Urine Opiates Screen Negative ng/mL (Negative) 11/18/22 17:45 Ur Barbiturates Screen Negative ng/mL (Negative) 11/18/22 17:45 Ur Phencyclidine Scrn Negative ng/mL (Negative) 11/18/22 17:45 Ur Amphetamines Screen Negative ng/mL (Negative) 11/18/22 17:45 U Benzodiazepines Scrn Negative ng/mL (Negative) 11/18/22 17:45 Urine Cocaine Screen Negative ng/mL (Negative) 11/18/22 17:45 U Marijuana (THC) Screen Negative ng/mL (Negative) 11/18/22 17:45 Influenza Type A Ag positive (Negative) H 11/18/22 16:50 Influenza Type B Ag negative (Negative) 11/18/22 16:50 SARS-CoV-2 Ag (Rapid) negative (Negative) 11/18/22 16:50 Discharge Plan Discharge Patient Disposition: Home Clinical Impression: Influenza A Condition: Stable Prescriptions: No Action sumatriptan succinate [Imitrex] 50 mg tablet 50 mg PO ONCE PRN ibuprofen 600 mg tablet 600 mg PO Q6H Prilosec OTC 20 mg tablet,delayed release (DR/EC) 20 mg PO DAILY 30 Days Qty: 30 5RF (DME) cpap /and supplies See Rx Instructions .Route .MEDSUPPLY Qty: 1 0RF Rx Instructions: As directed cpap nightly w/humidifier and supplies omega-3 fatty acids 1,000 mg capsule 1,000 mg PO BID 30 Days Qty: 60 5RF meloxicam 15 mg tablet 15 mg PO DAILY 30 Days Qty: 30 5RF levothyroxine 50 mcg tablet 50 mcg PO DAILY Qty: 30 5RF dicyclomine 10 mg capsule 10 mg PO TID Qty: 90 5RF atorvastatin 20 mg tablet 20 mg PO DAILY 30 Days Qty: 30 5RF triamcinolone acetonide 0.1 % ointment 1 applic topical TID Qty: 15 0RF mupirocin 2 % ointment 1 applic topical TID Qty: 15 0RF semaglutide 1 mg/dose (4 mg/3 mL) pen injector 1 mg SUBCUT .weekly 30 Days Qty: 3 2RF Rx Instructions: 340B Qulipta 60 mg tablet 60 mg PO DAILY duloxetine 60 mg capsule,delayed release(DR/EC) 60 mg PO DAILY 30 Days Qty: 30 3RF hydroxyzine HCl 25 mg tablet 25 mg PO BID PRN (Reason: agitation or sleep) Qty: 60 3RF Discharge Orders: Discharge ED (Routine); Ordered 11/18/22 Ordered By: Vilma Landa Referrals: Pamella Masterson FNP-C [Primary Care Provider] - Discharge Diet: Advance as tolerated Discharge Activity: Increase activity as tolerated Patient Instructions: Flu - Adult, Opioid Safety, Pain Management Activity Restrictions/Additional Instructions: Please rest and stay hydrated Return to ER with any concerns or worsening of symptoms as provided on discharge paperwork Follow up with PCP Coding Level of Care Code ED Tank Shop Supervisor for Mickey Paul
[2022-11-18 17:53] VITALS: BP 136/88; PULSE 75; RESP 15; O2SAT 98
[2022-11-18 17:55] LABS: Influenza A by IFA positive (Negative); Influenza B by IFA negative (Negative); SARS Covid-2 Antigen negative (Negative)
[2022-11-18 18:18] LABS: Add Urine Microscopic? NO; Charge for UA Resulting for Rev
[2022-11-18 18:23] LABS: Urine Appearance Clear (CLEAR); Urine Color Straw (Yellow)
[2022-11-18 18:24] LABS: Bilirubin Urine Neg (Negative); Blood Urine Neg (Negative); Glucose Urine UA Norm (Normal); Ketones Urine Negative (Negative); Leukocyte Esterase Urine Negative (Negative); Nitrate Urine Negative (Negative); Protein Urine Neg (Negative); Specific Gravity, Urine 1.005 (1.005-1.030); Urobilinogen Urine Norm (Negative); pH Urine 5 (5-7)
[2022-11-18 18:30] LABS: Amphetamines Screen Urine Negative (Negative); Barbiturates Screen Urine Negative (Negative); Benzodiazepines Screen Urine Negative (Negative); Cocaine Screen Urine Negative (Negative); Opiate Screen Urine Negative (Negative); PCP Screen Urine Negative (Negative); THC Screen Urine Negative (Negative)
[2022-11-18 18:31] LABS: HCG Qualitative Urine. Negative (Negative)
== END 2022-11-18 18:40 | disposition home or self-care (01) ==
PROVIDERS: Emergency Provider Registered Nurse; PCP Nurse Practitioner Family
DX: J10.1 Influenza due to other identified influenza virus with other respiratory manifestations (principal); Z20.822 Contact with and (suspected) exposure to COVID-19; E78.2 Mixed hyperlipidemia
CPT/HCPCS: 80306; 81003; 81025; 87426; 87804; 99283

== ENCOUNTER → 2023-01-01 13:58 | Outpatient (BNVA) | payer MEDICAID, SELFPAY | PROVIDERS: PCP Nurse Practitioner Family; Visit Provider Nurse Practitioner Family | DX: E78.5 Hyperlipidemia, unspecified (principal); K58.0 Irritable bowel syndrome with diarrhea; E03.9 Hypothyroidism, unspecified; M16.11 Unilateral primary osteoarthritis, right hip; K21.9 Gastro-esophageal reflux disease without esophagitis; Z12.39 Encounter for other screening for malignant neoplasm of breast; E88.81 Metabolic syndrome and other insulin resistance; E78.2 Mixed hyperlipidemia; F41.1 Generalized anxiety disorder; F33.0 Major depressive disorder, recurrent, mild; R73.9 Hyperglycemia, unspecified | CPT/HCPCS: 80053; 80061; 83036; 84443; 85025 ==

== ENCOUNTER 2023-01-09 09:14 | Outpatient (CLI) | payer MEDICAID, SELFPAY ==
--- NOTE | 2023-01-09 09:22 | MM_ITS ---
WS: [id number] VIEWS: MLO and CC views both breasts. 3D digital tomosynthesis is also included in this exam. Comparison made with prior exam of 11/05/2019.. Findings: There was no sign of mass, architectural distortion or suspicious calcification in either breast. He terogeneously dense MM/[id number] Impression: BI-RADS: 2-Benign FOLLOW-UP: 1 Year Follow-up This mammogram was also analyzed by the Computer Aided Detection System R2 Imag e Supervisor [employer]. Z12.39 - Encounter for other screening for malignant neop...
== END 2023-01-09 09:15 | disposition home or self-care (01) ==
PROVIDERS: PCP Nurse Practitioner Family; Visit Provider Nurse Practitioner Family
DX: Z12.31 Encounter for screening mammogram for malignant neoplasm of breast (principal)
CPT/HCPCS: 77063; 77067

== ENCOUNTER → 2023-08-30 11:18 | Outpatient (BNVA) | payer MEDICAID, SELFPAY | PROVIDERS: PCP Nurse Practitioner Family; Visit Provider Nurse Practitioner Family | DX: K21.9 Gastro-esophageal reflux disease without esophagitis (principal); M16.11 Unilateral primary osteoarthritis, right hip; E03.9 Hypothyroidism, unspecified; K58.0 Irritable bowel syndrome with diarrhea; E78.5 Hyperlipidemia, unspecified; E78.2 Mixed hyperlipidemia; Z68.41 Body mass index [BMI] 40.0-44.9, adult; F41.1 Generalized anxiety disorder; F33.0 Major depressive disorder, recurrent, mild; H65.90 Unspecified nonsuppurative otitis media, unspecified ear | CPT/HCPCS: 80053; 80061; 83036; 84443; 85025 ==

== ENCOUNTER → 2024-02-05 10:05 | Outpatient (BNVA) | payer MEDICAID, SELFPAY ==
[2024-01-30 11:43] VITALS: BP 143/100; BMI 42.2
== END ==
PROVIDERS: PCP Nurse Practitioner Family; Visit Provider Nurse Practitioner Family
DX: S62.621A Displaced fracture of middle phalanx of left index finger, initial encounter for closed fracture (principal); X58.XXXA Exposure to other specified factors, initial encounter
CPT/HCPCS: 73140

== ENCOUNTER → 2024-03-02 15:19 | Outpatient (BNVA) | payer MEDICAID, SELFPAY ==
[2024-01-30 11:43] VITALS: BP 143/100; BMI 42.2
== END ==
PROVIDERS: PCP Nurse Practitioner Family; Referring Provider Nurse Practitioner Family; Visit Provider Specialist
DX: S62.65 Nondisplaced fracture of middle phalanx of finger; X58.XXXD Exposure to other specified factors, subsequent encounter
CPT/HCPCS: 73130; 99204

== ENCOUNTER → 2024-03-16 11:05 | Outpatient (BNVA) | payer MEDICAID, SELFPAY ==
[2024-03-13 09:48] VITALS: BP 143/100; BMI 42.2
== END ==
PROVIDERS: PCP Nurse Practitioner Family; Visit Provider Nurse Practitioner Family
DX: E78.2 Mixed hyperlipidemia
CPT/HCPCS: 80053; 80061; 83036; 84443; 85025

== ENCOUNTER 2024-03-25 09:46 | Outpatient (CLI) | payer MEDICAID, SELFPAY ==
[2024-03-13 09:48] VITALS: BP 143/100; BMI 42.2
--- NOTE | 2024-03-25 11:00 | MM_ITS ---
WS: [id number] BILATERAL SCREENING DIGITAL TOMOSYNTHESIS MAMMOGRAM WITH CAD HISTORY: Z12.39 - Encounter for other screening for malignant neop... COMPARISON: 01/09/2023, 11/05/2019 Bilateral CC and MLO views with tomosynthesis and synthetic mammography submitted. Computer aided det ection analyzed. Breast composition: The breasts are heterogeneously dense, which may obscure small masses. No suspici ous masses, microcalcifications or architectural distortion. MM/[id number] IMPRESSION: BI-RADS: 1-Negative FOLLOW UP: 1 Year Follow-up
== END 2024-03-25 09:47 | disposition home or self-care (01) ==
LOC: RAD 09:47
PROVIDERS: PCP Nurse Practitioner Family; Visit Provider Nurse Practitioner Family
DX: Z12.31 Encounter for screening mammogram for malignant neoplasm of breast (principal)
CPT/HCPCS: 77063; 77067

== ENCOUNTER 2024-05-30 21:15 | Emergency (ER) | payer MEDICAID, SELFPAY ==
[2024-04-17 15:00] VITALS: BP 141/64; BMI 44.2
[2024-05-30 21:43] VITALS: BP 113/73; PULSE 72; RESP 16; TEMP 36.6; O2SAT 97; BMI 43.0
--- NOTE | 2024-05-30 23:38 | W.ED.EXTPRO ---
Documented by User: [email or web address] Pleitez 05/31/24 00:13 HPI - Extremity Problem General: Chief complaint: Extremity Injury, Upper Stated complaint: Right hand injury Time Seen by Provider: 05/30/24 22:49 Source: patient Mode of arrival: ambulatory Limitations: no limitations History of Present Illness: Patient is a 44-year-old female presenting to the emergency department due to injury to right pointer finger. Patient states she was sifting through a box of unused fishhooks, when 1 cut her finger. It was stuck superficially, per the patient, and did pull it out with a pair of pliers. Bleeding was controlled, however she presents stating that she needs a tetanus shot and wants the lesion evaluated. Lesion is not bleeding at this time and is covered with a Band-Aid. No distal neurovascular deficits were reported. No other injuries. Wound does appear clean without contamination. No other symptoms reported at this time. MD Complaint: other (Cut to right pointer finger) Onset (ago): minute(s) Location: right Associated symptoms: Deny chest pain, fever(s) or rash Review of Systems General: Reports: 10 or more systems reviewed and unremarkable except in HPI and below Const: Denies: fever(s) or chills Card: Denies: chest pain Resp: Denies: dyspnea GI: Denies: abdominal pain, nausea, vomiting or diarrhea Musc: Denies: extremity pain or joint pain Skin/Breast: Reports: skin pain, skin tenderness and new lesions (Cut to right pointer finger pad); Denies: rash Neuro: Denies: headache(s) PFS ED PFSH: Medical History Psychiatric care Obstructive sleep apnea Hyperlipidemia, mixed Irritable bowel syndrome with diarrhea Group B streptococcal carriage complicating Major depressive disorder, recurrent, mild Generalized anxiety disorder Excoriation (skin-picking) disorder Chronic GERD Hypothyroidism Surgical History Hx of bilateral salpingectomy History of tubal ligation History of cholecystectomy History of colonoscopy History of esophagogastroduodenoscopy (EGD) Family History Father Cancer stomach Heart disease Stroke Mother Hypertension Hyperlipidemia Diabetes Family/Other Breast cancer maternal aunt, diagnosed at unknown age Sister Diabetes Grandmother Diabetes paternal Denies family history of Colon cancer Ovarian cancer Anesthesia complication Bleeding disorder Uterine cancer Thyroid disease Social History Smoking and tobacco/nicotine status: unknown if used tobacco/nicotine Second hand smoke exposure: No Alcohol intake: never Substance/Drug Use: unknown Adopted: No Caregiver/support person: No Lives independently: Yes Household members: significant other and children Housing: House Marital status: Single Number of children: 1 service: No Current occupational status: employed 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ifts Pets and animals: Yes Pets & animals: dog(s) Do you think of yourself as: Straight/Heterosexual Current gender identity: Female Female Reproductive History: Para: 1 Physical Exam Const: COMMON NORMALS: no acute distress, average body habitus, patient oriented x3, no limitations, healthy appearing, alert and well nourished HENMT: COMMON NORMALS: normocephalic and atraumatic HEAD & SCALP: normocephalic and atraumatic Neck/C-Spine: COMMON NORMALS: full ROM, no lymphadenopathy, supple and no meningeal signs Resp: COMMON NORMALS: normal respiratory effort, No use of accessory muscles and clear to auscultation bilaterally AUSCULTATION: clear to auscultation bilaterally Cardio: COMMON NORMALS: regular rate and regular rhythm RATE: regular rate RHYTHM: regular rhythm Extremity: COMMON NORMALS: full ROM and capillary refill normal Neuro: COMMON NORMALS: patient oriented x3 SENSORIUM/ORIENTATION: Yes alert MENINGEAL SIGNS: Yes no meningeal signs Skin: COMMON NORMALS: turgor normal NARRATIVE SKIN EXAM: There is a very superficial laceration with dried blood surrounding it to the pad of the right pointer finger. No active bleeding at this time. No gaping wound and no foreign body presents. Area is tender to the touch. GENERAL SKIN EXAM: turgor normal Course Vital Signs: Vital signs: Vital Signs Temperature 97.9 F 05/30/24 21:43 Pulse Rate 72 05/30/24 21:43 Respiratory Rate 16 05/30/24 21:43 Blood Pressure 113/73 05/30/24 21:43 Pulse Oximetry 97 05/30/24 21:43 Oxygen Delivery Me thod Room Air 05/30/24 21:43 MDM - Extremity (Nontraumatic) Medical Decision Making Patient presented after being stuck with a clean fishhook prior to arrival. Bleeding was controlled. States that she just wanted her tetanus updated and for the wound to be looked at. It did appear clean without any contamination, and her tetanus is updated today. Due to the unsanitary nation of the pliers that were used to pull the hook out, will prescribe antibiotics prophylactically as well as a topical mupirocin to cover for any staph. Proper wound care was discussed and she is to monitor for any signs of infection that would warrant return. Otherwise she will follow-up with primary care. No radiology studies performed this visit Discharge Plan Discharge Patient Disposition: Home Clinical Impression: Finger laceration Qualifiers: Encounter type: initial encounter Finger: index finger Damage to nail status: without damage Foreign body presence: without foreign body Laterality: right Qualified Code(s): S61.210A - Laceration without foreign body of right index finger without damage to nail, initial encounter Condition: Stable Prescriptions: New cephalexin 500 mg capsule 500 mg PO BID 7 Days Qty: 14 0RF mupirocin 2 % ointment 1 applic topical BID Qty: 15 0RF No Action sumatriptan succinate [Imitrex] 50 mg tablet 50 mg PO ONCE PRN ibuprofen 600 mg tablet 600 mg PO Q6H (DME) cpap /and supplies See Rx Instructions .Route .MEDSUPPLY Qty: 1 0RF Rx Instructions: As directed cpap nightly w/humidifier and supplies albuterol sulfate [Ventolin HFA] 90 mcg/actuation HFA aerosol inhaler 2 puff inhalation 6XD PRN (Reason: shortness of breath or wheezing) Qty: 8.5 0RF (DME) pen needle, diabetic [Comfort EZ Pen Lawai] 31 gauge x 3/16 needle See Rx Instructions .Route Qty: 100 2RF Rx Instructions: As directed Victoza 2-Dagoberto 0.6 mg/0.1 mL (18 mg/3 mL) pen injector 0.6 mg SUBCUT DAILY Qty: 6 2RF Prilosec OTC 20 mg tablet,delayed release (DR/EC) 20 mg PO DAILY 30 Days Qty: 30 5RF meloxicam 15 mg tablet 15 mg PO DAILY 30 Days Qty: 30 5RF levothyroxine 50 mcg tablet 50 mcg PO DAILY Qty: 30 5RF dicyclomine 10 mg capsule 10 mg PO TID Qty: 90 5RF atorvastatin 20 mg tablet 20 mg PO DAILY 30 Days Qty: 30 5RF Qulipta 60 mg tablet 60 mg PO DAILY cyclobenzaprine 10 mg tablet 10 mg PO BID PRN (Reason: muscle spasm) Qty: 10 0RF duloxetine [Cymbalta] 30 mg capsule,delayed release(DR/EC) 30 mg PO .morning Qty: 30 6RF Rx Instructions: Take one capsule with 60 mg capsule every morning, total dose 90 mg duloxetine 60 mg capsule,delayed release(DR/EC) 60 mg PO .morning Qty: 30 6RF Rx Instructions: Take one capsule every morning hydroxyzine HCl 25 mg tablet 25 mg PO BID PRN (Reason: anxiety) Qty: 60 6RF Discharge Orders: Discharge ED (Routine); Ordered 05/30/24 Ordered By: David Bob Referrals: Pamella Masterson FNP-C [Primary Care Provider] - Discharge Diet: Usual diet Discharge Activity: Increase activity as tolerated Patient Instructions: Laceration (ED), Pain Management Activity Restrictions/Additional Instructions: Take antibiotics as prescribed. Topical bacitracin. Proper wound care as discussed. Monitor for any signs of infection and return for reevaluation. Otherwise you may follow-up with primary care as needed. Coding Level of Care Code ED Strike Off Machine Operator for Chg [employer] Documented by User: Lázaro Macias DO 05/31/24 04:02 HPI - Extremity Problem General: Chief complaint: Extremity Injury, Upper Stated complaint: Right hand injury Time Seen by Provider: 05/30/24 22:49 [facility] ED PFSH: Medical History Psychiatric care Obstructive sleep apnea Hyperlipidemia, mixed Irritable bowel syndrome with diarrhea Group B streptococcal carriage complicating Major depressive disorder, recurrent, mild Generalized anxiety disorder Excoriation (skin-picking) disorder Chronic GERD Hypothyroidism Surgical History Hx of bilateral salpingectomy History of tubal ligation History of cholecystectomy History of colonoscopy History of esophagogastroduodenoscopy (EGD) Family History Father Cancer stomach Heart disease Stroke Mother Hypertension Hyperlipidemia Diabetes Family/Other Breast cancer maternal aunt, diagnosed at unknown age Sister Diabetes Grandmother Diabetes paternal Denies family history of Colon cancer Ovarian cancer Anesthesia complication Bleeding disorder Uterine cancer Thyroid disease Social History Smoking and tobacco/nicotine status: unknown if used tobacco/nicotine Second hand smoke exposure: No Alcohol intake: never Substance/Drug Use: unknown Adopted: No Caregiver/support person: No Lives independently: Yes Household members: significant other and children Housing: House Marital status: Single Number of children: 1 service: No Current occupational status: employed Current occupation: [employer] Pets and animals: Yes Pets & animals: dog(s) Do you think of yourself as: Straight/Heterosexual Current gender identity: Female Course Vital Signs: Vital signs: Vital Signs Temperature 97.9 F 05/30/24 21:43 Pulse Rate 72 05/30/24 21:43 Respiratory Rate 16 05/30/24 21:43 Blood Pressure 113/73 05/30/24 21:43 Pulse Oximetry 97 05/30/24 21:43 Oxygen Delivery Me thod Room Air 05/30/24 21:43 MDM - Extremity (Nontraumatic) Medical Decision Making Patient presented after being stuck with a clean fishhook prior to arrival. Bleeding was controlled. States that she just wanted her tetanus updated and for the wound to be looked at. It did appear clean without any contamination, and her tetanus is updated today. Due to [place] unsanitary nation of the pliers that were used to pull the hook out, will prescribe antibiotics prophylactically as well as a topical mupirocin to cover for any staph. Proper wound care was discussed and she is to monitor for any signs of infection that would warrant return. Otherwise she will follow-up with primary care. This patient was originally seen by Mr. Paulino PA-C.? I agree with his history, evaluation, and treatment. Discharge Plan Discharge Patient Disposition: Home Clinical Impression: Finger laceration Qualifiers: Encounter type: initial encounter Finger: index finger Damage to nail status: without damage Foreign body presence: without foreign body Laterality: right Qualified Code(s): S61.210A - Laceration without foreign body of right index finger without damage to nail, initial encounter Condition: Stable Prescriptions: New cephalexin 500 mg capsule 500 mg PO BID 7 Days Qty: 14 0RF mupirocin 2 % ointment 1 applic topical BID Qty: 15 0RF No Action sumatriptan succinate [Imitrex] 50 mg tablet 50 mg PO ONCE PRN ibuprofen 600 mg tablet 600 mg PO Q6H (DME) cpap /and supplies See Rx Instructions .Route .MEDSUPPLY Qty: 1 0RF Rx Instructions: As directed cpap nightly w/humidifier and supplies albuterol sulfate [Ventolin HFA] 90 mcg/actuation HFA aerosol inhaler 2 puff inhalation 6XD PRN (Reason: shortness of breath or wheezing) Qty: 8.5 0RF (DME) pen needle, diabetic [Comfort EZ Pen Law[place]] 31 gauge x 3/16 needle See Rx Instructions .Route Qty: 100 2RF Rx Instructions: As directed Victoza 2-Dagoberto 0.6 mg/0.1 mL (18 mg/3 mL) pen injector 0.6 mg SUBCUT DAILY Qty: 6 2RF Prilosec OTC 20 mg tablet,delayed release (DR/EC) 20 mg PO DAILY 30 Days Qty: 30 5RF meloxicam 15 mg tablet 15 mg PO DAILY 30 Days Qty: 30 5RF levothyroxine 50 mcg tablet 50 mcg PO DAILY Qty: 30 5RF dicyclomine 10 mg capsule 10 mg PO TID Qty: 90 5RF atorvastatin 20 mg tablet 20 mg PO DAILY 30 Days Qty: 30 5RF Qulipta 60 mg tablet 60 mg PO DAILY cyclobenzaprine 10 mg tablet 10 mg PO BID PRN (Reason: muscle spasm) Qty: 10 0RF duloxetine [Cymbalta] 30 mg capsule,delayed release(DR/EC) 30 mg PO .morning Qty: 30 6RF Rx Instructions: Take one capsule with 60 mg capsule every morning, total dose 90 mg duloxetine 60 mg capsule,delayed release(DR/EC) 60 mg PO .morning Qty: 30 6RF Rx Instructions: Take one capsule every morning hydroxyzine HCl 25 mg tablet 25 mg PO BID PRN (Reason: anxiety) Qty: 60 6RF Discharge Orders: Discharge ED (Routine); Ordered 05/30/24 Ordered By: David Bob Referrals: Pamella Masterson FNP-C [Primary Care Provider] - Discharge Diet: Usual diet Discharge Activity: Increase activity as tolerated Patient Instructions: Laceration (ED), Pain Management Activity Restrictions/Additional Instructions: Take antibiotics as prescribed. Topical bacitracin. Proper wound care as discussed. Monitor for any signs of infection and return for reevaluation. Otherwise you may follow-up with primary care as needed. Coding Level of Care Code ED Strike Off Machine Operator for Mickey Paul
[2024-05-30] MEDS: tetanus-dipt-pertussis 0.5 mL SDV IM (23:41)
[2024-05-30] MEDS: bacitracin ointment Pkt 1 EACH TOPICAL (23:42)
[2024-05-30] MEDS: cephALEXin 500 mg Capsule PO (23:42)
== END 2024-05-30 23:45 | disposition home or self-care (01) ==
PROVIDERS: Emergency Provider Physician Assistant; PCP Nurse Practitioner Family
DX: S61.210A Laceration without foreign body of right index finger without damage to nail, initial encounter (principal); E78.2 Mixed hyperlipidemia; W26.8XXA Contact with other sharp object(s), not elsewhere classified, initial encounter; Z23 Encounter for immunization
CPT/HCPCS: 90715; 99283

== ENCOUNTER → 2024-08-06 13:07 | Outpatient (BNVA) | payer OTHER, SELFPAY ==
[2024-04-17 15:00] VITALS: BP 141/64; BMI 44.2
== END ==
PROVIDERS: PCP Nurse Practitioner Family; Visit Provider Nurse Practitioner Psychiatric/Mental Health
DX: Z79.899 Other long term (current) drug therapy (principal)
CPT/HCPCS: 80053

== ENCOUNTER → 2024-11-03 12:28 | Outpatient (BNVA) | payer OTHER, SELFPAY ==
[2024-04-17 15:00] VITALS: BP 141/64; BMI 44.2
== END ==
PROVIDERS: PCP Nurse Practitioner Family; Visit Provider Nurse Practitioner Psychiatric/Mental Health
DX: Z79.899 Other long term (current) drug therapy; E03.9 Hypothyroidism, unspecified; E88.810 Metabolic syndrome
CPT/HCPCS: 80053; 80061; 80164; 83036; 84443; 85025

== ENCOUNTER 2025-02-11 07:38 | Outpatient (CLI) | payer MEDICAID, SELFPAY ==
[2024-04-17 15:00] VITALS: BP 141/64; BMI 44.2
[2024-11-09 14:36] VITALS: BP 110/78; BMI 42.7
== END 2025-02-11 07:39 | disposition home or self-care (01) ==
LOC: SLEEP 07:38
PROVIDERS: PCP Nurse Practitioner Family; Visit Provider Nurse Practitioner Psychiatric/Mental Health
DX: G47.19 Other hypersomnia (principal)
CPT/HCPCS: 95805

== ENCOUNTER → 2025-03-12 08:50 | Outpatient (BNVA) | payer OTHER, SELFPAY ==
[2024-11-09 14:36] VITALS: BP 110/78; BMI 42.7
== END ==
PROVIDERS: PCP Nurse Practitioner Family; Visit Provider Nurse Practitioner Psychiatric/Mental Health
DX: Z79.899 Other long term (current) drug therapy (principal)
CPT/HCPCS: 80053; 80164

== ENCOUNTER → 2025-06-08 15:12 | Outpatient (BNVA) | payer MEDICAID, SELFPAY ==
[2025-06-07 14:54] VITALS: BP 110/78; BMI 42.7
== END ==
PROVIDERS: PCP Nurse Practitioner Family; Visit Provider Nurse Practitioner Family
DX: E03.9 Hypothyroidism, unspecified (principal); E78.2 Mixed hyperlipidemia; R53.83 Other fatigue; E88.810 Metabolic syndrome
CPT/HCPCS: 80053; 80061; 82306; 82607; 83036; 84443; 85025

== ENCOUNTER → 2025-08-06 11:11 | Outpatient (BNVA) | payer MEDICAID, SELFPAY ==
[2025-06-28 16:24] VITALS: BP 128/76; BMI 42.5
== END ==
PROVIDERS: PCP Nurse Practitioner Family; Visit Provider Emergency Medicine
DX: J02.9 Acute pharyngitis, unspecified (principal)
CPT/HCPCS: 87070; 87071; 87880

== ENCOUNTER → 2025-09-01 08:40 | Outpatient (BNVA) | payer MEDICAID, SELFPAY ==
[2025-06-28 16:24] VITALS: BP 128/76; BMI 42.5
== END ==
PROVIDERS: PCP Nurse Practitioner Family; Visit Provider Obstetrics & Gynecology
DX: Z01.419 Encounter for gynecological examination (general) (routine) without abnormal findings (principal); N93.9 Abnormal uterine and vaginal bleeding, unspecified
CPT/HCPCS: 81025; 87624

== ENCOUNTER → 2025-09-07 10:23 | Outpatient (BNVA) | payer MEDICAID, SELFPAY ==
[2025-06-28 16:24] VITALS: BP 128/76; BMI 42.5
== END ==
PROVIDERS: PCP Nurse Practitioner Family; Visit Provider Nurse Practitioner Family
DX: E78.2 Mixed hyperlipidemia (principal); E03.9 Hypothyroidism, unspecified; K21.9 Gastro-esophageal reflux disease without esophagitis; F41.1 Generalized anxiety disorder; F33.0 Major depressive disorder, recurrent, mild; K58.0 Irritable bowel syndrome with diarrhea; G47.33 Obstructive sleep apnea (adult) (pediatric); M19.09 Primary osteoarthritis, other specified site; E88.810 Metabolic syndrome
CPT/HCPCS: 80053; 80061; 83036; 84443; 85025

== ENCOUNTER 2025-09-10 08:19 | Outpatient (CLI) | payer MEDICAID, SELFPAY ==
[2025-06-28 16:24] VITALS: BP 128/76; BMI 42.5
--- NOTE | 2025-09-10 08:20 | MM_ITS ---
WS: [id number] SCREENING DIGITAL BREAST TOMOSYNTHESIS MAMMOGRAM WITH CAD HISTORY: Z12.39 - Encounter for other screening for malignant neop... COMPARISON: 03/25/2024, 01/09/2023, 11/05/2019 Bilateral CC and MLO with tomosynthesis and synthetic mammography submitted. Computer aided detection analyzed. Breast composition: The breasts are heterogeneously dense, which may obscure small masses. Linear asymmetry seen best on the LEFT MLO projection in the lateral anterior breast extends towards the nipple. No distortion. RIGHT breast is negative. MM/MM [facility] tomosynthesis [id number] IMPRESSION: BI-RADS: 0 - Incomplete: Need additional imaging evaluation FOLLOW UP: Need Additional Imaging LEFT breast: Spot compression views (CC and MLO). True ML. Ultrasound to follow if abnormality persists.
== END 2025-09-10 08:20 | disposition home or self-care (01) ==
PROVIDERS: PCP Nurse Practitioner Family; Visit Provider Obstetrics & Gynecology
DX: Z12.31 Encounter for screening mammogram for malignant neoplasm of breast (principal); R92.333 Mammographic heterogeneous density, bilateral breasts; N64.89 Other specified disorders of breast
CPT/HCPCS: 77063; 77067

== ENCOUNTER 2025-09-13 10:58 | Emergency (ER) | payer SELFPAY ==
[2025-06-28 16:24] VITALS: BP 128/76; BMI 42.5
[2025-09-13 11:17] VITALS: BP 159/132; PULSE 60; RESP 16; TEMP 36.6; O2SAT 99; BMI 38.0
--- NOTE | 2025-09-13 11:19 | CT_ITS ---
WS: [id number] CT HEAD NONCONTRAST HISTORY: fall TECHNIQUE: Contiguous axial imaging performed through the brain. Bone and soft tissue windows. Sagittal and coronal reformats reviewed. All CT scans at [facility] use at least one of these dose optimization techniques: automated exposure control; mA and/or kV adjustment per patient size (includes targeted exams where dose is matched to clinical indication); or iterative reconstruction. DLP: 1155.98 mGy.cm COMPARISON: 02/28/2021 No acute intracranial hemorrhage, midline shift or mass effect. No atrophy or prior infarcts or herniation. No prior infarct. Ventricles: Mildly prominent ventricles similar to the prior study. No inferior displacement of the cerebellar tonsils. Paranasal sinuses: As visualized are clear. Mastoid air cells: Well pneumatized. Calvarium and scalp: Skull is intact with no soft tissue edema or swelling. CT/CT head wo con* [id number] IMPRESSION: Stable noncontrast CT head. No acute intracranial hemorrhage or edema.
--- NOTE | 2025-09-13 11:19 | CT_ITS ---
WS: [id number] CT LUMBAR SPINE, noncontrast. HISTORY: fall TECHNIQUE: Contiguous 2.0 mm axial imaging are performed. Sagittal and coronal reformats are submitted and reviewed. All CT scans at [facility] use at least one of these dose optimization techniques: automated exposure control; mA and/or kV adjustment per patient size (includes targeted exams where dose is matched to clinical indication); or iterative reconstruction. IV contrast: None DLP: 846.80 mGy.cm COMPARISON: None available. Mild increase in the lumbar lordosis. Vertebral bodies are well preserved. Disc spaces are well preserved. L1-2: Normal. L2-3: Normal. L3-4: Mild disc bulging. No stenosis. L4-5: Mild annular disc bulging. Shallow bilateral foraminal disc protrusions. Mild foraminal stenosis. L5-S1: Mild annular disc bulging. Mild foraminal stenosis. Advanced facet joint arthropathy at the L5-S1 level. There is degenerative air in the LEFT facet joint. Erosions and sclerosis involving the articular facets. No fracture identified. No significant soft tissue hematomas are identified. Prior cholecystectomy. CT/CT lumbar spine wo con* [id number] IMPRESSION: 1. No acute lumbar spine fracture identified. 2. Advanced degenerative facet joint arthritis at L5-S1. No acute fractures se en. 3. Prior cholecystectomy.
[2025-09-13 11:20] VITALS: BP 150/123; PULSE 87; O2SAT 100
[2025-09-13] MEDS: HYDROcodone-acetaminophen 5-325 mg Tablet 1 TAB PO (11:25)
--- NOTE | 2025-09-13 11:31 | ED_ITS ---
HPI - Fall General: Chief Complaint: Fall Stated Complaint: lower back pain, headache post fall Time Seen by Provider: 09/13/25 11:13 Source: patient Mode of arrival: ambulatory Limitations: no limitations History of Present Illness: 45 old female states she had fell down s ome steps at work this morning at 7 already. States she had landed on her buttocks and then hit her head states she has pain to her low back along with a headache. She rates her pain a 7 out of 10 currently denies any loss conscious states she has been able to ambulate since the event but it is painful for her low back when she walks. Associated symptoms-after fall: Reports headache(s) Related Data Home Medications ?Medication ?Instructions ?Recorded ?Confirmed ibuprofen 600 mg tablet 600 mg PO Q6H 01/05/2209/07 Previous Rx's ?Medication ?Instructions ?Recorded divalproex 125 mg tablet,delayed 125 mg PO .morning #3 0 tabs 08/06/25 release (Depakote) divalproex 250 mg tablet,delayed 250 mg PO .morning #3 0 tabs 08/06/25 release (Depakote) divalproex 500 mg tablet,delayed 500 mg PO .7 pm #30 t abs 08/06/25 release (Depakote) modafinil 100 mg tablet (Provigil) 100 mg PO QAM #30 t abs 08/06/25 atorvastatin 20 mg tablet 20 mg PO DAILY 30 days #30 t abs 09/07/25 cholecalciferol (vitamin D3) 1,250 50,000 unit PO Q7D #4 caps 09/07/25 mcg (50,000 unit) capsule levothyroxine 50 mcg tablet 50 mcg PO DAILY #30 tabs 1 meloxicam 15 mg tablet 15 mg PO DAILY 30 days #30 t abs 09/07/25 omeprazole magnesium 20 mg 20 mg PO DAILY 30 days #30 tabs 09/07/25 tablet,delayed release (Prilosec OTC) semaglutide 0.25 mg or 0.5 mg (2 0.5 mg (0.736 mL) SUB CUT .once 09/07/25 mg/3 mL) subcutaneous pen injector weekly #3 mL (Ozempic) naproxen 500 mg tablet (Naprosyn) 500 mg PO BID PRN pa in #20 tabs 09/13/25 Allergies Allergy/AdvReac Type Severity Reaction Status Date / Time codeine Allergy swelling Verified 09/07/25 09:02 Penicillins Allergy rash Verified 09/07/25 09:02 tetracycline Allergy vomiting Verified 09/07/25 09:02 Review of Systems Musc: Reports: back pain Neuro: Reports: headache(s) PFSH ED PFSH: Medical History Narcolepsy Bipolar II disorder Psychiatric care Hyperlipidemia, mixed Irritable bowel syndrome with diarrhea Group B streptococcal carriage complicating Generalized anxiety disorder Excoriation (skin-picking) disorder Chronic GERD Hypothyroidism Surgical History Hx of bilateral salpingectomy History of tubal ligation History of cholecystectomy History of colonoscopy History of esophagogastroduodenoscopy (EGD) Family History Father Cancer stomach Heart disease Stroke Mother Hypertension Hyperlipidemia Diabetes Family/Other Breast cancer maternal aunt, diagnosed at unknown age Sister Diabetes Grandmother Diabetes paternal Stroke Denies family history of Colon cancer Ovarian cancer Anesthesia complication Bleeding disorder Uterine cancer Thyroid disease Social History Smoking and tobacco/nicotine status: unknown if used tobacco/nicotine Second hand smoke exposure: No Alcohol intake: never Substance/Drug Use: unknown Adopted: No Caregiver/support person: No Lives independently: Yes Household members: significant other and children Housing: House Marital status: Single Number of children: 1 service: No Current occupational status: employed 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ifts Pets and animals: Yes Pets & animals: dog(s) Do you think of yourself as: Straight/Heterosexual Current gender identity: Female Female Reproductive History: Para: 1 Physical Exam Const: COMMON NORMALS: no acute distress, patient oriented x3 and healthy appearing HENMT: COMMON NORMALS: normocephalic HEAD & SCALP: normocephalic OTHER: Tenderness to posterior scalp Eye: COMMON NORMALS: Equal, round and reactive pupils present and EOMs intact bilaterally PUPIL: Yes Equal, round and reactive pupils present Neck/C-Spine: COMMON NORMALS: full ROM and supple CERVICAL SPINE: No pain with cervical ROM and No Cervical spine tenderness Chest: COMMONS NORMALS: normal inspection of the chest Resp: COMMON NORMALS: normal respiratory effort, No retractions, No use of accessory muscles and clear to auscultation bilaterally AUSCULTATION: clear to auscultation bilaterally Cardio: COMMON NORMALS: regular rate, regular rhythm and No murmurs present (Cardio) RATE: regular rate RHYTHM: regular rhythm Back/Pelvis: OTHER: Tenderness over low back no step-off Extremity: COMMON NORMALS: normal to inspection and full ROM Neuro: COMMON NORMALS: patient oriented x3, moves all extremities and no focal motor deficits Psych: COMMON NORMALS: mental status grossly normal, Normal thought process present and cooperative THOUGHT PROCESS: Normal thought process present Skin: COMMON NORMALS: no rashes or lesions noted and no wounds GENERAL SKIN EXAM: no rashes or lesions noted Course Vital Signs: Vital signs: Vital Signs Temperature 97.9 F 09/13/25 11:17 Pulse Rate 79 09/13/25 12:41 Respiratory Rate 16 09/13/25 11:17 Blood Pressure 132/80 09/13/25 12:41 Pulse Oximetry 98 09/13/25 12:41 Oxygen Delivery Me thod Room Air 09/13/25 12:41 MDM - Fall Medical Decision Making Patient presents here after a fall. She does have low back pain along with headache her head CT here showed no signs of fracture or subarachnoid hemorrhage or epidural hematoma. Imaged low back showed no fracture. She has no signs of cord compression here no saddle anesthesia. Her pain has improved here after hydrocodone we will prescribe her Naprosyn for home. She is to rest and ice follow-up with her PCP and return if worsening she understands agrees to plan. Medical Records I reviewed the patient's medical records. Lab Data Radiology Impressions Head CT 09/13/25 11:19 IMPRESSION: Stable noncontrast CT head. No acute intracranial hemorrhage or edema. Lumbar Spine CT 09/13/25 11:19 IMPRESSION: 1. No acute lumbar spine fracture identified. 2. Advanced degenerative facet joint arthritis at L5-S1. No acute fractures seen. 3. Prior cholecystectomy. Laboratory Results Urine Opiates Screen Positive ng/mL (Negative) H 09/13/25 11:40 Ur Barbiturates Screen Negative ng/mL (Negative) 09/13/25 11:40 Ur Phencyclidine Scrn Negative ng/mL (Negative) 09/13/25 11:40 Ur Amphetamines Screen Negative ng/mL (Negative) 09/13/25 11:40 U Benzodiazepines Scrn Negative ng/mL (Negative) 09/13/25 11:40 Urine Cocaine Screen Negative ng/mL (Negative) 09/13/25 11:40 U Marijuana (THC) Screen Negative ng/mL (Negative) 09/13/25 11:40 All radiology interpretation(s) finalized by discharge Discharge Plan Discharge Patient Disposition: Home Clinical Impression: Closed head injury Qualifiers: Encounter type: initial encounter Qualified Code(s): S09.90XA - Unspecified injury of head, initial encounter Lumbar contusion Qualifiers: Encounter type: initial encounter Qualified Code(s): S30.0XXA - Contusion of lower back and pelvis, initial encounter Fall Qualifiers: Encounter type: initial encounter Qualified Code(s): W19.XXXA - Unspecified fall, initial encounter Condition: Stable Prescriptions: New naproxen [Naprosyn] 500 mg tablet 500 mg PO BID PRN (Reason: pain) Qty: 20 0RF No Action ibuprofen 600 mg tablet 600 mg PO Q6H divalproex [Depakote] 250 mg tablet,delayed release (DR/EC) 250 mg PO .morning Qty: 30 4RF Rx Instructions: Take one tablet every morning with 125 mg tab, total dose 375 mg. divalproex [Depakote] 500 mg tablet,delayed release (DR/EC) 500 mg PO .7 pm Qty: 30 4RF Rx Instructions: Take one tablet at 7 pm divalproex [Depakote] 125 mg tablet,delayed release (DR/EC) 125 mg PO .morning Qty: 30 4RF Rx Instructions: Take one tablet every morning with 250 mg tablet, total dose 375 mg. modafinil [Provigil] 100 mg tablet 100 mg PO QAM Qty: 30 0RF Rx Instructions: Take one tablet every morning Ozempic 0.25 mg or 0.5 mg (2 mg/3 mL) pen injector 0.5 mg SUBCUT .once weekly Qty: 3 2RF cholecalciferol (vitamin D3) 1,250 mcg (50,000 unit) capsule 50,000 unit PO Q7D Qty: 4 2RF atorvastatin 20 mg tablet 20 mg PO DAILY 30 Days Qty: 30 5RF levothyroxine 50 mcg tablet 50 mcg PO DAILY Qty: 30 5RF meloxicam 15 mg tablet 15 mg PO DAILY 30 Days Qty: 30 5RF Prilosec OTC 20 mg tablet,delayed release (DR/EC) 20 mg PO DAILY 30 Days Qty: 30 5RF Discharge Orders: Discharge ED (Routine); Ordered 09/13/25 Ordered By: Alhaji Guan Referrals: Pamella Masterson FNP-C [Primary Care Provider, Family Practice] - 4-7 days Discharge Diet: Advance as tolerated Discharge Activity: Resume usual activity Patient Instructions: Head Injury (ED), Back Pain (ED) Print Language: Uzbek Coding Level of Care Code ED Planning Director for Mickey Paul
[2025-09-13 11:50] VITALS: BP 123/78; PULSE 74; O2SAT 97
--- OUTSIDE RECORDS SUMMARY | 2025-09-13 11:56 | XMS_ITS | Clinical Summary ---
Author Organization [employer] Address [address] Narvaezn: [place] [address] Care Team Providers Care Lanolin Plant Operator Name Role Phone Taco Alvarado NP Primary Care Provider Allergies Active Allergy Reactions Criticality Noted Date Comments Adhesive Rash Low 02/26/2012 Codeine Swelling High 07/01/2013 Facial swelling Penicillins Rash Low 09/27/2008 Tetracycline Nausea and Vomiting Low 09/27/2008 Medications levothyroxine 50 mcg tablet TAKE ONE TABLET BY MOUTH EVERY MORNING 30 Tablet 5 07/18/20 18 Active famotidine (PEPCID) 40 mg tablet TAKE ONE TABLET BY MOUTH DAILY 2 05/16/20 19 Active sertraline (ZOLOFT) 100 mg tablet Take 100 mg by mouth daily. 0 05/26/20 19 Active ibuprofen (MOTRIN) 600 mg tablet Take 1 Tablet (600 mg) by mouth every 6 hours as needed for Other (See Comment) (migraine). 30 Tablet 1 03/05/20 23 Active divalproex (DEPAKOTE) 250 mg Delayed Release tablet Take 250 mg by mouth daily. 08/13/20 24 Active SUMAtriptan (IMITREX) 50 mg tabletIndicatio ns:Migraine without aura, not intractable, without status migrainosus Take 1 Tablet (50 mg) by mouth see administration instructions. Take 1 at onset of migraine, may repeat in 2 hours; max dose 200mg in 24 hours 9 Tablet 11 10/13/20 24 Active Active Problems Problem Noted Date Diagnosed Date Migraine 09/27/2008 Depressive disorder 09/27/2008 Generalized anxiety disorder 09/27/2008 Encounters Date Type Department Care Team Description 09/08/2025 External Device Data ST[facility] ABSTRACTION Provider, Abstract 09/07/2025 External Device Data [facility] ABSTRACTION Provider, Abstract 08/03/2025 External Device Data [facility] ABSTRACTION Provider, Abstract 06/22/2025 External Device Data [facility] ABSTRACTION Provider, Abstract from Last 3 Months Immunizations Immunization Administration Dates Next Due (ADACEL/BOOSTRIX)(10 YR UP) TDAP VACCINE, 0.5ML, IM 08/08/2015 Influenza Seasonal Unspecifi ed Formulation IM 07/04/2016,08/08/2015,08/06/2014 Influenza Vaccine Split 3+ Yrs IM 09/02/2013 Social History Tobacco Use Types Packs/Day Years Used Date Smoking Tobacco: Never Smokeless Tobacco: Never Alcohol Use Standard Drinks/Week Comments No 0 (1 standard drink = 0.6 oz pur e alcohol) Comments Unknown Sex and Gender Information Value Date Recorded Sex Assigned at Not on file Legal Sex Female 7:10 AM DICER OPERATOR Gender Identity Not on file Sexual Orientation Not on file Last Filed Vital Signs Vital Sign Reading Time Taken Comments Blood Pressure 138/81 09/14/2019 3:40 PM CDT Pulse 68 09/14/2019 3:40 PM CDT Temperature 36.9 C (98.4 F) 10/31/2017 10:32 AM DICER OPERATOR Respiratory Rate 16 09/14/2019 3:40 PM CDT Oxygen Saturation - - Inhaled Oxygen Concentration - - Weight 94.3 kg (208 lb) 09/14/2019 3:40 PM CDT Height 160 cm (5' 3 ) 09/14/2019 3:40 PM CDT Body Mass Index 36.85 09/14/2019 3:40 PM CDT Plan of Treatment Upcoming Encounters Date Type Department Care Team (Late st Contact Info) Description 10/19/2025 12:10 PM DICER OPERATOR Office Visit [facility] [place] [address] [place] [address] Alaina Green, ART COORDINATOR [address] [place] [address] Health Maintenance Due Date Last Done Comments HEPATITIS B VACCINES (1 of 3 - 19+ 3-dose series) 1998 Preventative Visit-Managed Medicaid 04/30/2016 04/29/2015, 09/05/2011 PAP SMEAR 04/29/2018 04/29/2015 BREAST CANCER SCREENING 2019 CERVICAL CANCER SCREENING 04/29/2020 HPV/Cotest (21-29) 04/29/2020 04/29/2015 HPV/Cotest (30-65) 04/29/2020 04/29/2015 COLORECTAL SCREENING 2024 Colorectal Cancer Screening 2024 FIT-DNA Q 3 years 2024 FIT/FOBT Q 1 year 2024 Flex Sig/CT Colonography Q 5 years 2024 INFLUENZA VACCINE (#1) 2025 6, 08/08/2015, 08/06/2014, Additional history exists DTAP/TDAP/TD VACCINES (2 - Td or Tdap) 08/08/2025 08/08/2015 HPV VACCINES Aged Out No longer eligi ble based on patient's age to complete this topic Procedures Procedure Name Priority Date/Time Associated Diagnosis Comments CERV/VAG CYTOPATH, THIN PREP W/RFLX HPV Routine 04/29/2015 11:53 AM CDT from Last 3 Months or Most Recently Relevant to Health Maintenance Results * CERV/VAG CYTOPATH, THIN PREP W/RFLX HPV (04/29/2015 11:53 AM CDT) TH THIN PREP CYTOLOGY REPORT REFLEX HPV [facility] Anatomic Pathology Dept [address] [facility] [address] Patient: LISSETT RUDOLPH Accn No: [id number] , [id number] Collected: 04/29/2015 11:53:00 AM All cases except those with a DP prefix are performed by pathologists from [facility] at [facility]. Case type DP is performed by Dr. Rich Man, [facility], [facility], [address], [address], [place] [address] (CLIA #[id number]) (Ph. [phone]). THIN PREP PAP - REFLEX HPV History Specimen Type: Endocervical LMP: None Provided Previous Pap History: None Provided Specimen Adequacy Satisfactory for interpretation. Endocervical or metaplastic cells present. The smear shows partially obscuring inflammation Diagnosis NEGATIVE FOR INTRAEPITHELIAL LESION OR MALIGNANCY. (Prevously noted as Within Normal Limits). Regulatory Compliance Coordinator/ EDR Pathologist: 05/13/15 Completed by: LISSETT LEIJA BSCT (ASCP) (Electronically signed by) 05/13/15 Comment Routine follow-up is suggested. Important Information About Pap Smears The Pap smear is associated with a low but well-documented and probably irreducible false negative rate of up to 10%. Additionally, the false positive rate for a diagnosis of invasive carcinoma or HSIL has been estimated to be approximately 1-10%. Therefore, any visible lesion on the cervix should be biopsied regardless of Pap smear findings. HPV Testing off the Thin Prep vial can be done as a means of further evaluating a Thin Prep Report. For information about ordering the HPV test, phone Virology at . Treatment or follow-up recommendations (if any) that are contained within this report are based upon general recommendations as contained in 2001 Consensus Guidelines For Cervical Cytological Abnormalities RHIANNA: March 11, 2002, and are provided as a general guideline rather than as a specific recommendation. Final decisions about the most appropriate treatment and follow-up should be made on an individualized basis by the treating physician in consultation with his/her patient. 05/13/2015 12:28 PM CDT [facility] 04/29/2015 11:5 3 AM CDT Narrative [facility] - 05/13/2015 12:28 PM CDT Joseline Ordered:TH Thin Prep Cytology Report Reflex HPV:# us Cezar Bowles MD PATHOLOGY/CYTOLOGY ORDER SLAVA Edited Result - Final [facility] CLIA# [id number] [address] [place] [address] [facility] CLIA # [id number] [address] [facility] [place] [address] from Last 3 Months or Most Recently Relevant to Health Maintenance Insurance MEDICAID [place] Care Teams Lanolin Plant Operator Relationship Specialty Start Date End Date Taco Alvarado NP [address] [place] [phone] PCP - General NURSE PRACTITIONER 06/10/19
--- OUTSIDE RECORDS SUMMARY | 2025-09-13 11:57 | XMS_ITS | Encounter Summary ---
Author Organization [facility] Address [address] [place] [address] Care Team Providers Care Cell Tuber Hand Name Role Phone Taco Alvarado STORM SASH MAKER Primary Care Provider Encounter Details Date Type Department Care Team (Latest Contact Info) Description 01/30/2002 Outpatient [facility] Medicine[address] [phone] Dale Ford MD [address], [place] [address] ACUTE BRONCHITIS (Primary Dx) Social History Tobacco Use Types Packs/Day Years Used Date Smoking Tobacco: Never Assessed Comments Unknown Sex and Gender Information Value Date Recorded Sex Assigned at Not on file Legal Sex Female 3:31 AM SALAD CHEF Gender Identity Not on file Sexual Orientation Not on file documented as of this encounter Plan of Treatment Not on file documented as of this encounter Visit Diagnoses Diagnosis Acute bronchitis- Primary documented in this encounter Care Teams Cell Tuber Hand Relationship Specialty Start Date End Date Taco Alvarado NP [address] [place] [phone] PCP - General NURSE PRACTITIONER 06/10/19 documented as of this encounter
--- OUTSIDE RECORDS SUMMARY | 2025-09-13 11:57 | XMS_ITS | Encounter Summary ---
Author Organization [employer] Address [address] [place] [address] Care Team Providers Care Apprentice Carpenter Name Role Phone Taco Alvarado NP Primary Care Provider Encounter Details Date Type Department Care Team (Late st Contact Info) Description 09/08/2025 External Device Data [facility] ABSTRACTION Provider, Abstract NO ADDRESS ON FILE Social History Tobacco Use Types Packs/Day Years Used Date Smoking Tobacco: Never Smokeless Tobacco: Never Alcohol Use Standard Drinks/Week Comments No 0 (1 standard drink = 0.6 oz pur e alcohol) Comments Unknown Sex and Gender Information Value Date Recorded Sex Assigned at Not on file Legal Sex Female 7:10 AM SHOT HOLE DRILLER Gender Identity Not on file Sexual Orientation Not on file documented as of this encounter Plan of Treatment Upcoming Encounters Date Type Department Care Team (Late st Contact Info) Description 10/19/2025 12:10 PM SHOT HOLE DRILLER Office Visit [facility] [place] [address] [place] [address] Alaina Green, NAYELI [address] [place] [address] documented as of this encounter Visit Diagnoses Not on filedocumented in this encounter Care Teams Apprentice Carpenter Relationship Specialty Start Date End Date Taco Alvarado NP [address] [place] [phone] PCP - General NURSE PRACTITIONER 06/10/19 documented as of this encounter
--- OUTSIDE RECORDS SUMMARY | 2025-09-13 11:57 | XMS_ITS | Encounter Summary ---
Author Organization [facility] Address [address] [place] [address] Care Team Providers Care Driver Engineer Name Role Phone Taco Alvarado ADMINISTRATIVE TECHNICIAN Primary Care Provider Encounter Details Date Type Department Care Team (Latest Contact Info) Description 01/23/2001 Outpatient [facility] Medicine[address] [address] Mich Bishop MD [address] [phone] Dysthymic disorder (Primary Dx) Social History Tobacco Use Types Packs/Day Years Used Date Smoking Tobacco: Never Assessed Comments Unknown Sex and Gender Information Value Date Recorded Sex Assigned at Not on file Legal Sex Female 3:31 AM REVENUE ACCOUNTANT Gender Identity Not on file Sexual Orientation Not on file documented as of this encounter Plan of Treatment Not on file documented as of this encounter Visit Diagnoses Diagnosis Dysthymic disorder- Primary documented in this encounter Care Teams Driver Engineer Relationship Specialty Start Date End Date Taco Alvarado NP [address] [place] [address] PCP - General NURSE PRACTITIONER 06/10/19 documented as of this encounter
--- OUTSIDE RECORDS SUMMARY | 2025-09-13 11:57 | XMS_ITS | Encounter Summary ---
Author Organization [facility] Address [address] [place] [address] Care Team Providers Care Insurance Underwriter Name Role Phone Taco Alvarado GLASS TUBE BENDER Primary Care Provider Encounter Details Date Type Department Care Team (Latest Contact Info) Description 12/27/2000 Outpatient [facility] Medicine[address] [address] Mich Bishop MD [address] [phone] Undiagnosed cardiac murmurs (Primary Dx) Social History Tobacco Use Types Packs/Day Years Used Date Smoking Tobacco: Never Assessed Comments Unknown Sex and Gender Information Value Date Recorded Sex Assigned at Not on file Legal Sex Female 3:31 AM COMPUTER TECH Gender Identity Not on file Sexual Orientation Not on file documented as of this encounter Plan of Treatment Not on file documented as of this encounter Visit Diagnoses Diagnosis Undiagnosed cardiac murmurs- Primary documented in this encounter Care Teams Insurance Underwriter Relationship Specialty Start Date End Date Taco Alvarado NP [address] [place] [address] PCP - General NURSE PRACTITIONER 06/10/19 documented as of this encounter
--- OUTSIDE RECORDS SUMMARY | 2025-09-13 11:57 | XMS_ITS | Encounter Summary ---
Author Organization [facility] Address [address] [place] [address] Care Team Providers Care Cribbing Setter Name Role Phone Taco Alvarado WOODEN FENCE ERECTOR Primary Care Provider Encounter Details Date Type Department Care Team (Latest Contact Info) Description 09/25/2001 Outpatient [facility] Medicine[address] [address] Mich Bishop MD [address] [phone] NONSUPP OTITIS MEDIA NOS (Primary Dx) Social History Tobacco Use Types Packs/Day Years Used Date Smoking Tobacco: Never Assessed Comments Unknown Sex and Gender Information Value Date Recorded Sex Assigned at Not on file 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
--- OUTSIDE RECORDS SUMMARY | 2025-09-13 11:57 | XMS_ITS | Encounter Summary ---
Author Organization [facility] Address [address] [place] [address] Care Team Providers Care Pv Design And Installation Technician Name Role Phone Taco Alvarado ASSISTANT CASINO SHIFT MANAGER Primary Care Provider Encounter Details Date Type Department Care Team (Latest Contact Info) Description 02/24/2001 Outpatient [facility] Medicine[address] [address] Mich Bishop MD [address] [phone] Dysthymic disorder (Primary Dx) Social History Tobacco Use Types Packs/Day Years Used Date Smoking Tobacco: Never Assessed Comments Unknown Sex and Gender Information Value Date Recorded Sex Assigned at Not on file 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
--- OUTSIDE RECORDS SUMMARY | 2025-09-13 11:57 | XMS_ITS | Encounter Summary ---
Author Organization [facility] Address [address] [place] [address] Care Team Providers Care It Risk Advisor Name Role Phone Taco Alvarado BODY MECHANIC APPRENTICE Primary Care Provider Encounter Details Date Type Department Care Team (Latest Contact Info) Description 01/09/2001 Outpatient [facility] Medicine[address] [address] Mich Bishop MD [address] [phone] Anxiety state, unspecified (Primary Dx); Dysthymic disorder Social History Tobacco Use Types Packs/Day Years Used Date Smoking Tobacco: Never Assessed Comments Unknown Sex and Gender Information Value Date Recorded Sex Assigned at Not on file 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
--- OUTSIDE RECORDS SUMMARY | 2025-09-13 11:57 | XMS_ITS | Encounter Summary ---
Author Organization [facility] Address [address] [place] [address] Care Team Providers Care Commercial Drone Pilot Name Role Phone Taco Alvarado TIRE CARE MANAGER Primary Care Provider Encounter Details Date Type Department Care Team (Latest Contact Info) Description 08/06/2002 Outpatient [facility] Medicine[address] [address] Mich Bishop MD [address] [phone] Gynecologic examination (Primary Dx) Social History Tobacco Use Types Packs/Day Years Used Date Smoking Tobacco: Never Assessed Comments Unknown Sex and Gender Information Value Date Recorded Sex Assigned at Not on file Legal Sex Female 3:31 AM DIRECTOR HR COMMUNICATIONS Gender Identity Not on file Sexual Orientation Not on file documented as of this encounter Plan of Treatment Not on file documented as of this encounter Visit Diagnoses Diagnosis Gynecologic examination- Primary Gynecological examination documented in this encounter Care Teams Commercial Drone Pilot Relationship Specialty Start Date End Date Taco Alvarado NP [address] [place] [phone] PCP - General NURSE PRACTITIONER 06/10/19 documented as of this encounter
--- OUTSIDE RECORDS SUMMARY | 2025-09-13 11:57 | XMS_ITS | Clinical Summary ---
Author Organization [facility] [address] [place] [address] Address [address] [place] [address] Care Team Providers Care Packing Checker Name Role Phone Taco Alvarado PATIENT SERVICE TECHNICIAN PST Primary Care Provider Allergies Active Allergy Reactions Criticality Noted Date Comments Adhesive Rash Low 02/26/2012 Codeine Swelling High 07/01/2013 Facial swelling Penicillins Rash Low 09/27/2008 Tetracycline Nausea and Vomiting Low 09/27/2008 Medications LEVOTHYROXINE 50 mcg tablet TAKE ONE TABLET BY MOUTH EVERY MORNING 30 Tablet 5 8 Active famotidine (PEPCID) 40 mg tablet TAKE ONE TABLET BY MOUTH DAILY 2 9 Active sertraline (ZOLOFT) 100 mg tablet Take 100 mg by mouth daily. 0 9 Active Sharps Container USE DIRECTED 1 Each 0 Active SUMAtriptan (IMITREX) 50 mg tablet TAKE 1/2 TO 1 TABLET BY MOUTH AT ONSET OF HEADACHE. MAY REPEAT IN TWO HOURS NEEDED. NEEDS OFFICE VISIT BEFORE FURTHER REFILLS 9 Tablet 11 0 Active ibuprofen (MOTRIN) 600 mg tablet TAKE ONE TABLET BY MOUTH EVERY 6 HOURS NEEDED FOR MILD PAIN 100 Tablet 11 0 Active methylPREDNISol one (MEDROL DOSPACK) 4 mg Tablets, Dose Pack Take as directed. 21 Tablet 1 Active galcanezumab-gn lm (Emgality Pen) 120 mg/mL Pen Injector Inject 1 mL by subcutaneous injection every 30 days. 1 mL 11 1 Active Active Problems Problem Noted Date Diagnosed Date Migraine 09/27/2008 Depressive disorder 09/27/2008 Generalized anxiety disorder 09/27/2008 Immunizations Immunization Administration Dates Next Due (ADACEL/BOOSTRIX)(10 YR UP) TDAP VACCINE, 0.5ML, IM 08/08/2015 Influenza Seasonal Unspecifi ed Formulation IM 07/04/2016,08/08/2015,08/06/2014 Influenza Vaccine Split 3+ Yrs IM 09/02/2013 Social History Tobacco Use Types Packs/Day Years Used Date Smoking Tobacco: Never Smokeless Tobacco: Never Tobacco Cessation:Counseling Given: No Alcohol Use Standard Drinks/Week Comments No 0 (1 standard drink = 0.6 oz pur e alcohol) Comments No Sex and Gender Information Value Date Recorded Sex Assigned at Not on file Legal Sex Female 3:31 AM FISHER CRAB Gender Identity Not on file Sexual Orientation Not on file Last Filed Vital Signs Vital Sign Reading Time Taken Comments Blood Pressure 138/81 09/14/2019 3:40 PM CDT Pulse 68 09/14/2019 3:40 PM CDT Temperature 36.9 C (98.4 F) 10/31/2017 10:32 AM FISHER CRAB Respiratory Rate 16 09/14/2019 3:40 PM CDT Oxygen Saturation 96% 09/14/2019 3:40 PM CDT Inhaled Oxygen Concentration - - Weight 94.3 kg (208 lb) 09/14/2019 3:40 PM CDT Height 160 cm (5' 3 ) 09/14/2019 3:40 PM CDT Body Mass Index 36.85 09/14/2019 3:40 PM CDT Plan of Treatment Health Maintenance Due Date Last Done Comments HEPATITIS B VACCINES (1 of 3 - 19+ 3-dose series) 1998 PAP SMEAR 04/29/2018 04/29/2015, 08/18, 08/06/2002 BREAST CANCER SCREENING 2019 CERVICAL CANCER SCREENING 04/29/2020 HPV/Cotest (21-29) 04/29/2020 04/29/2015, 09/05/2011 HPV/Cotest (30-65) 04/29/2020 04/29/2015, 09/05/2011 COLORECTAL SCREENING 2024 Colorectal Cancer Screening 2024 [...] PREP W/RFLX HPV (04/29/2015 11:53 AM CDT) Pathologist [facility] THIN PREP CYTOLOGY REPORT REFLEX HPV [facility] Anatomic Pathology Dept [address] [place] [phone] Patient: LISSETT RUDOLPH Accn No: [id number] , [id number] Collected: 04/29/2015 11:53:00 AM All cases except those with a DP prefix are performed by pathologists from [facility] at [facility]. Case type DP is performed by Dr. Rich Man, [facility], [facility], [address], [place] [address] (CLIA #[id number]) (Ph. [phone]). THIN PREP PAP - REFLEX HPV History Specimen Type: Endocervical LMP: None Provided Previous Pap History: None Provided Specimen Adequacy Satisfactory for interpretation. Endocervical or metaplastic cells present. The smear shows partially obscuring inflammation Diagnosis NEGATIVE FOR INTRAEPITHELIAL LESION OR MALIGNANCY. (Prevously noted as Within Normal Limits). Suture Gauger/ EDR Pathologist: 05/13/15 Completed by: LISSETT LEIJA [...] treating physician in consultation with his/her patient. [facility] [employer] [facility] 04/29/2015 11:5 3 AM CDT Cezar Bowles MD PATHOLOGY/CYTOLOGY ORDER SLAVA Edited Result - Final [facility] [employer] [facility] CLIA# [id number] [address] [place] [address] from Last 3 Months or Most Recently Relevant to Health Maintenance Insurance [address] [place] [address] MEDICAID [place] Care Teams Packing Checker Relationship Specialty Start Date End Date Taco Alvarado NP [address] [place] [phone] PCP - General NURSE PRACTITIONER 06/10/19
--- OUTSIDE RECORDS SUMMARY | 2025-09-13 11:57 | XMS_ITS | Encounter Summary ---
Author Organization [facility] Address [address] [place] [address] Care Team Providers Care Data Management Manager Name Role Phone Taco Alvarado NP Primary Care Provider Reason for Visit * Reason Comments Medication Refill Encounter Details Date Type Department Care Team (Late st Contact Info) Description 05/03/2017 Refill [facility] Headache Management [place] [address] [place] [address] Alaina Green, [facility] [address] [facility] [address] [place] [address] Social History Tobacco Use Types Packs/Day Years Used Date Smoking Tobacco: Never Smokeless Tobacco: Never Alcohol Use Standard Drinks/Week Comments No 0 (1 standard drink = 0.6 oz pur e alcohol) Comments No Sex and Gender Information Value Date Recorded Sex Assigned at Not on file Legal Sex Female 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
--- OUTSIDE RECORDS SUMMARY | 2025-09-13 11:57 | XMS_ITS | Encounter Summary ---
Author Organization [employer] Address [address] [place] [address] Care Team Providers Care Construction Safety Consultant Name Role Phone Taco Alvarado NP Primary Care Provider Encounter Details Date Type Department Care Team (Late st Contact Info) Description 09/07/2025 External Device Data [facility] ABSTRACTION Provider, Abstract NO ADDRESS ON FILE Social History Tobacco Use Types Packs/Day Years Used Date Smoking Tobacco: Never Smokeless Tobacco: Never Alcohol Use Standard Drinks/Week Comments No 0 (1 standard drink = 0.6 oz pur e alcohol) Comments Unknown Sex and Gender Information Value Date Recorded Sex Assigned at Not on file Legal Sex Female 7:10 AM OFFICE AIDE Gender Identity Not on file Sexual Orientation Not on file documented as of this encounter Plan of Treatment Upcoming Encounters Date Type Department Care Team (Late st Contact Info) Description 10/19/2025 12:10 PM OFFICE AIDE Office Visit [facility] [place] [address] [place] [address] Alaina Green, NAYELI [address] [place] [address] documented as of this encounter Visit Diagnoses Not on filedocumented in this encounter Care Teams Construction Safety Consultant Relationship Specialty Start Date End Date Taco Alvarado NP [address] [place] [phone] PCP - General NURSE PRACTITIONER 06/10/19 documented as of this encounter
[2025-09-13 12:02] LABS: PCP Screen Urine Negative (Negative)
[2025-09-13 12:41] VITALS: BP 132/80; PULSE 79; O2SAT 98
[2025-09-13 13:10] VITALS: BP 124/80; PULSE 75; O2SAT 98
== END 2025-09-13 13:11 | disposition home or self-care (01) ==
PROVIDERS: Emergency Provider Emergency Medicine; PCP Nurse Practitioner Family
DX: S09.8XXA Other specified injuries of head, initial encounter (principal); S30.0XXA Contusion of lower back and pelvis, initial encounter; E78.2 Mixed hyperlipidemia; W10.9XXA Fall (on) (from) unspecified stairs and steps, initial encounter
CPT/HCPCS: 70450; 72131; 80306; 99284; J9999

== ENCOUNTER 2025-10-05 14:08 | Outpatient (CLI) | payer MEDICAID, SELFPAY ==
[2025-06-28 16:24] VITALS: BP 128/76; BMI 42.5
--- NOTE | 2025-10-05 14:30 | MM_ITS ---
WS: [id number] ADDITIONAL VIEWS LEFT MAMMOGRAM WITH DIGITAL BREAST TOMOSYNTHESIS. LEFT breast ultrasound, limited HISTORY: Follow-up linear asymmetry seen on screening mammogram. COMPARISON: 09/10/2025, 03/25/2024, 01/09/2023 Spot compression views LEFT breast in CC, MLO projections and true ML submitted with digital breast tomosynthesis and SM. Breast composition: The breasts are heterogeneously dense, which may obscure small masses. Linear asymmetry persists but becomes less conspicuous in the upper outer quadrant of the LEFT breast. There is no distortion. Ultrasound will also be performed as this is a new finding. LEFT breast ultrasound, limited. Ultrasound is directed to the upper outer quadrant. There is a dense band of fibroglandular tissue. There are a few small benign cysts along the band of tissue. There is no shadowing or distortion. No mass. MM/MM diag LT tomosynthesis [id number] IMPRESSION: BI-RADS: 2 - Benign FOLLOW UP: 1 Year Follow-up Dense band of fibroglandular breast tissue in the upper outer quadrant of the L EFT breast. No mass identified or shadowing. Return to annual screening mammogr aphy.
--- NOTE | 2025-10-05 15:00 | US_ITS ---
WS: [id number] ADDITIONAL VIEWS LEFT MAMMOGRAM WITH DIGITAL BREAST TOMOSYNTHESIS. LEFT breast ultrasound, limited HISTORY: Follow-up linear asymmetry seen on screening mammogram. COMPARISON: 09/10/2025, 03/25/2024, 01/09/2023 Spot compression views LEFT breast in CC, MLO projections and true ML submitted with digital breast tomosynthesis and SM. Breast composition: The breasts are heterogeneously dense, which may obscure small masses. Linear asymmetry persists but becomes less conspicuous in the upper outer quadrant of the LEFT breast. There is no distortion. Ultrasound will also be performed as this is a new finding. LEFT breast ultrasound, limited. Ultrasound is directed to the upper outer quadrant. There is a dense band of fibroglandular tissue. There are a few small benign cysts along the band of tissue. There is no shadowing or distortion. No mass. US/US breast LT limited* [id number] IMPRESSION: BI-RADS: 2 - Benign FOLLOW UP: 1 Year Follow-up Dense band of fibroglandular breast tissue in the upper outer quadrant of the L EFT breast. No mass identified or shadowing. Return to annual screening mammogr aphy.
== END 2025-10-05 14:09 | disposition home or self-care (01) ==
LOC: RAD 14:11
PROVIDERS: PCP Nurse Practitioner Family; Visit Provider Nurse Practitioner Women's Health
DX: R92.8 Other abnormal and inconclusive findings on diagnostic imaging of breast (principal); R92.333 Mammographic heterogeneous density, bilateral breasts; R92.323 Mammographic fibroglandular density, bilateral breasts; N60.12 Diffuse cystic mastopathy of left breast
CPT/HCPCS: 76642; 77061; 77063

== ENCOUNTER → 2025-10-20 08:56 | Outpatient (BNVA) | payer MEDICAID, SELFPAY ==
[2025-09-27 14:57] VITALS: BP 131/81; BMI 40.0
== END ==
PROVIDERS: PCP Nurse Practitioner Family; Referring Provider Nurse Practitioner Psychiatric/Mental Health; Visit Provider Specialist
DX: G47.419 Narcolepsy without cataplexy (principal); R03.0 Elevated blood-pressure reading, without diagnosis of hypertension
CPT/HCPCS: 99204

== ENCOUNTER 2025-11-08 19:49 | Inpatient (IN) | payer MEDICAID, SELFPAY ==
[2025-09-27 14:57] VITALS: BP 131/81; BMI 40.0
--- OUTSIDE RECORDS SUMMARY | 2025-11-08 19:54 | XMS_ITS | Encounter Summary ---
Author Organization [facility] Address [address] [place] [address] Care Team Providers Care Project Manager Finance Name Role Phone Taco Alvarado GLASS CUTTER HELPER Primary Care Provider Encounter Details Date Type Department Care Team (Latest Contact Info) Description 12/27/2000 Outpatient [facility] Medicine[address] [address] Mich Bishop MD [address] [phone] Undiagnosed cardiac murmurs (Primary Dx) Social History Tobacco Use Types Packs/Day Years Used Date Smoking Tobacco: Never Assessed Comments Unknown Sex and Gender Information Value Date Recorded Sex Assigned at Not on file Legal 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
--- OUTSIDE RECORDS SUMMARY | 2025-11-08 19:54 | XMS_ITS | Encounter Summary ---
Author Organization [facility] Address [address] [place] [address] Care Team Providers Care Manual Winder Name Role Phone Taco Alvarado SOFTWARE CONSULTANT Primary Care Provider Encounter Details Date Type Department Care Team (Latest Contact Info) Description 01/09/2001 Outpatient [facility] Medicine[address] [address] Mich Bishop MD [address] [phone] Anxiety state, unspecified (Primary Dx); Dysthymic disorder Social History Tobacco Use Types Packs/Day Years Used Date Smoking Tobacco: Never Assessed Comments Unknown Sex and Gender Information Value Date Recorded Sex Assigned at Not on file Legal Sex Female 3:31 AM MICROBIOLOGY SOIL SCIENTIST Gender Identity Not on file Sexual Orientation Not on file documented as of this encounter Plan of Treatment Not on file documented as of this encounter Visit Diagnoses Diagnosis Anxiety state, unspecified- Primary Dysthymic disorder documented in this encounter Care Teams Manual Winder Relationship Specialty Start Date End Date Taco Alvarado NP [address] [place] [phone] PCP - General NURSE PRACTITIONER 06/10/19 documented as of this encounter
--- OUTSIDE RECORDS SUMMARY | 2025-11-08 19:54 | XMS_ITS | Clinical Summary ---
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 REFINING MACHINE OPERATOR Gender Identity Not on file Sexual Orientation Not on file Last Filed Vital Signs Vital Sign Reading Time Taken Comments Blood Pressure 138/81 09/14/2019 3:40 PM CDT Pulse 68 09/14/2019 3:40 PM CDT Temperature 36.9 C (98.4 F) 10/31/2017 10:32 AM REFINING MACHINE OPERATOR Respiratory Rate 16 09/14/2019 3:40 PM [...] Additional history exists DTAP/TDAP/TD VACCINES (2 - T d or Tdap) 08/08/2025 08/08/2015 HPV VACCINES (No Doses Required) Completed Procedures Procedure Name Priority Date/Time Associated Diagnosis Comments CERV/VAG CYTOPATH, THIN PREP W/RFLX HPV Routine 04/29/2015 11:53 AM CDT from Last 3 Months or Most Recently Relevant to Health Maintenance Results * CERV/VAG CYTOPATH, THIN PREP W/RFLX HPV (04/29/2015 11:53 AM CDT) Pathologist [facility] THIN PREP CYTOLOGY REPORT REFLEX HPV [facility] Anatomic Pathology Dept [address] [place] [phone] Patient: LISSETT RUDOLPH Accn No: [id number] , [id number] Collected: 04/29/2015 11:53:00 AM All cases except those with a DP prefix are performed by pathologists from [facility] at [facility]. Case type DP is performed by Dr. Rich Man, [facility], [facility], [address], [place] [address] (CLIA #[id number]) (Ph. [phone]). THIN PREP PAP - REFLEX HPV History Specimen Type: Endocervical LMP: None Provided Previous Pap History: None Provided Specimen Adequacy Satisfactory for interpretation. Endocervical or metaplastic cells present. The smear shows partially obscuring inflammation Diagnosis NEGATIVE FOR INTRAEPITHELIAL LESION OR MALIGNANCY. (Prevously noted as Within Normal Limits). Riveter Hand/ EDR Pathologist: 05/13/15 Completed by: LISSETT LEIJA [...] treating physician in consultation with his/her patient. [facility] [employer] [facility] 04/29/2015 11:5 3 AM CDT Cezar Bowles MD PATHOLOGY/CYTOLOGY ORDER SLAVA Edited Result - Final [facility] CLIA# [id number] [address] [place] [address] from Last 3 Months or Most Recently Relevant to Health Maintenance Insurance [address] [place] [address] [place]ICAID [place] Care Teams Carbonizer Tester Relationship Specialty Start Date End Date Taco Alvarado NP [facility] [place] [phone] PCP - General NURSE PRACTITIONER 06/10/19
--- OUTSIDE RECORDS SUMMARY | 2025-11-08 19:54 | XMS_ITS | Clinical Summary ---
Author Organization [employer] Address [address] Danielson: [place] [address] Care Team Providers Care Automobile Carpets Molder Name Role Phone Taco Alvarado NP Primary Care Provider Allergies Active Allergy Reactions Criticality Noted Date Comments Adhesive Rash Low 02/26/2012 Codeine Swelling High 07/01/2013 Facial swelling Penicillins Rash Low 09/27/2008 Tetracycline Nausea and Vomiting Low 09/27/2008 Medications levothyroxine 50 mcg tablet TAKE ONE TABLET BY MOUTH EVERY MORNING 30 Tablet 5 018 Active famotidine (PEPCID) 40 mg tablet TAKE ONE TABLET BY MOUTH DAILY 2 019 Active sertraline (ZOLOFT) 100 mg tablet Take 100 mg by mouth daily. 0 019 Active ibuprofen (MOTRIN) 600 mg tablet Take 1 Tablet (600 mg) by mouth every 6 hours as needed for Other (See Comment) (migraine). 30 Tablet 1 023 Active divalproex (DEPAKOTE) 250 mg Delayed Release tablet Take 250 mg by mouth daily. 024 Active atogepant (Qulipta) 60 mg Tablet Take 1 Tablet (60 mg) by mouth daily. 30 Tablet 11 025 Active SUMAtriptan (IMITREX) 50 mg tabletIndicati ons:Migraine without aura, not intractable, without status migrainosus TAKE 1 TABLET BY MOUTH AT ONSET OF MIGRAINE. MAY REPEAT ONCE AFTER 2 HOURS IF NEEDED MAXIMUM DAILY AMOUNT: FOUR TABLETS IN 24 HOURS 9 Tablet 11 025 Active SUMAtriptan (IMITREX) 50 mg tabletIndicati ons:Migraine without aura, not intractable, without status migrainosus Take 1 Tablet (50 mg) by mouth see administration instructions. Take 1 at onset of migraine, may repeat in 2 hours; max dose 200mg in 24 hours 9 Tablet 11 024 2024 Discontinued atogepant (Qulipta) 60 mg Tablet Take 1 Tablet (60 mg) by mouth daily. 30 Tablet 11 025 2024 Discontinued(Lencho tse) Active Problems Problem Noted Date Diagnosed Date Migraine 09/27/2008 Depressive disorder 09/27/2008 Generalized anxiety disorder 09/27/2008 Encounters Date Type Department Care Team Description 11/02/2025 External Device Data STL ABSTRACTION Provider, Abstract 10/30/2025 Refill [facility] [place] [address] [place] [address] Alaina Green FNP Migraine without aura, not intractable, without status migrainosus 10/19/2025 12:10 PM LUNCH COUNTER MANAGER Video Visit [facility] [place] [address] [place] [phone] Alaina Green FNP Migraine without aura, not intractable, without status migrainosus (Primary Dx) 09/27/2025 Orders Only [facility] [place] [address] [place] [phone] Alaina Green FNP 09/21/2025 External Device Data STL ABSTRACTION Provider, Abstract 09/15/2025 External Device Data STL ABSTRACTION Provider, Abstract 09/14/2025 External Device Data STL ABSTRACTION Provider, Abstract 09/08/2025 External Device Data STL ABSTRACTION Provider, [...] Information Value Date Recorded Sex Assigned at Female 10/27/2025 8:19 AM LUNCH COUNTER MANAGER Legal Sex Female 7:10 AM LUNCH COUNTER MANAGER Gender Identity Female 10/27/2025 8:19 AM LUNCH COUNTER MANAGER Sexual Orientation Straight 10/27/2025 8: 19 AM LUNCH COUNTER MANAGER Last Filed Vital Signs Vital Sign Reading Time Taken Comments Blood Pressure 138/81 09/14/2019 3:40 PM CDT Pulse 68 09/14/2019 3:40 PM CDT Temperature 36.9 C (98.4 F) 10/31/2017 10:32 AM LUNCH COUNTER MANAGER Respiratory Rate 16 09/14/2019 3:40 PM CDT Oxygen Saturation - - Inhaled Oxygen Concentration - - Weight 94.3 kg (208 lb) 09/14/2019 3:40 PM CDT Height 160 cm (5' 3 ) 09/14/2019 3:40 PM CDT Body Mass Index 36.85 09/14/2019 3:40 PM CDT Plan of Treatment Upcoming Encounters Date Type Department Care Team (Late st Contact Info) Description 04/19/2026 2:00 PM CDT Office Visit [facility] [place] [address] [place] [address] Alaina Green, CLEANER CARPET AND UPHOLSTERY [address] [place] [address] Health Maintenance Due Date Last Done Comments HEPATITIS B VACCINES (1 of 3 - 19+ 3-dose series) 1998 PAP SMEAR 04/29/2018 04/29/2015 BREAST CANCER SCREENING [...] HPV (04/29/2015 11:53 AM CDT) Pathologist [facility] THIN PREP CYTOLOGY REPORT REFLEX HPV [facility] Anatomic Pathology Dept [address] [place], [place] [address] [address] Patient: LISSETT RUDOLPH Accn No: [id number] , [id number] Collected: 04/29/2015 11:53:00 AM All cases except those with a DP prefix are performed by pathologists from [facility] at [facility]. Case type DP is performed by Dr. Rich Man, [facility], [facility], [address], [address], [place] [address] (CLIA #[id number]) (Ph. [phone]). THIN PREP PAP - REFLEX HPV History Specimen Type: Endocervical LMP: None Provided Previous Pap History: None Provided Specimen Adequacy Satisfactory for interpretation. Endocervical or metaplastic cells present. The smear shows partially obscuring inflammation Diagnosis NEGATIVE FOR INTRAEPITHELIAL LESION OR MALIGNANCY. (Prevously noted as Within Normal Limits). Resource Specialist Teacher/ EDR Pathologist: 05/13/15 Completed by: LISSETT LEIJA [...] with his/her patient. 05/13/2015 12:28 PM CDT [facility] [employer] 04/29/2015 11:5 3 AM CDT Narrative [facility] [employer] - 05/13/2015 12:28 PM CDT Joseline Ordered:TH Thin Prep Cytology Report Reflex HPV:# us Cezar Bowles MD PATHOLOGY/CYTOLOGY ORDER SLAVA Edited Result - Final [facility] [employer] CLIA# [id number] [address] [place] [address] [facility] [employer] CLIA # [id number] [address] [facility] [place] [address] from Last 3 Months or Most Recently Relevant to Health Maintenance Insurance [address] [place] [address] MEDICAID [place] Care Teams Automobile Carpets Molder Relationship Specialty Start Date End Date Taco Alvarado NP [address] [place] [phone] PCP - General NURSE PRACTITIONER 06/10/19
--- OUTSIDE RECORDS SUMMARY | 2025-11-08 19:54 | XMS_ITS | Encounter Summary ---
Author Organization [facility] Address [address] [place] [address] Care Team Providers Care Farmworker Bulbs Name Role Phone Taco Alvarado TRENCH DIGGER HELPER Primary Care Provider Encounter Details Date Type Department Care Team (Latest Contact Info) Description 02/24/2001 Outpatient [facility] Medicine[address] [address] Mich Bishop MD [address] [phone] Dysthymic disorder (Primary Dx) Social History Tobacco Use Types Packs/Day Years Used Date Smoking Tobacco: Never Assessed Comments Unknown Sex and Gender Information Value Date Recorded Sex Assigned at Not on file Legal Sex Female 3:31 AM WEAVING INSPECTOR Gender Identity Not on file Sexual Orientation Not on file documented as of this encounter Plan of Treatment Not on file documented as of this encounter Visit Diagnoses Diagnosis Dysthymic disorder- Primary documented in this encounter Care Teams Farmworker Bulbs Relationship Specialty Start Date End Date Taco Alvarado NP [address] [place] [address] PCP - General NURSE PRACTITIONER 06/10/19 documented as of this encounter
--- OUTSIDE RECORDS SUMMARY | 2025-11-08 19:54 | XMS_ITS | Encounter Summary ---
Author Organization [facility] Address [address] [place] [address] Care Team Providers Care Cabin Service Agent Name Role Phone Taco Alvarado DIRECTOR OF CONTRACTS Primary Care Provider Encounter Details Date Type Department Care Team (Latest Contact Info) Description 01/23/[address] [facility] [place] Medicine[address] [address] Mich Bishop MD [address] [phone] Dysthymic disorder (Primary Dx) Social History Tobacco Use Types Packs/Day Years Used Date Smoking Tobacco: Never Assessed Comments Unknown Sex and Gender Information Value Date Recorded Sex Assigned at Not on file Legal Sex Female 3:31 AM AIRPORT SALES AGENT Gender Identity Not on file Sexual Orientation Not on file documented as of this encounter Plan of Treatment Not on file documented as of this encounter Visit Diagnoses Diagnosis Dysthymic disorder- Primary documented in this encounter Care Teams Cabin Service Agent Relationship Specialty Start Date End Date Taco Alvarado NP [address] [place] [address] PCP - General NURSE PRACTITIONER 06/10/19 documented as of this encounter
--- OUTSIDE RECORDS SUMMARY | 2025-11-08 19:54 | XMS_ITS | Encounter Summary ---
Author Organization [employer] Address [address] [place] [address] Care Team Providers Care Supervisor [employer] Products Name Role Phone Taco Alvarado NP Primary Care Provider [phone] Encounter Details Date Type Department Care Team (Late st Contact Info) Description 11/02/2025 External Device Data STL ABSTRACTION Provider, Abstract NO ADDRESS ON FILE Social History Tobacco Use Types Packs/Day Years Used Date Smoking Tobacco: Never Smokeless Tobacco: Never Alcohol Use Standard Drinks/Week Comments No 0 (1 standard drink = 0.6 oz pur e alcohol) Comments Unknown Sex and Gender Information Value Date Recorded Sex Assigned at Female 10/27/2025 8:19 AM HYDRO STATION SUPERVISOR Legal Sex Female 7:10 AM HYDRO STATION SUPERVISOR Gender Identity Female 10/27/2025 8:19 AM HYDRO STATION SUPERVISOR Sexual Orientation Straight 10/27/2025 8: 19 AM HYDRO STATION SUPERVISOR documented as of this encounter Plan of Treatment Upcoming Encounters Date Type Department Care Team (Late st Contact Info) Description 04/19/2026 2:00 PM CDT Office Visit [facility] [place] [address] [place] [address] Alaina Green, DIRECTOR RISK [address] [place] [address] documented as of this encounter Visit Diagnoses Not on filedocumented in this encounter Care Teams Supervisor [employer] Products Relationship Specialty Start Date End Date Taco Alvarado, XANDER [address] [place] [phone] PCP - General NURSE PRACTITIONER 06/10/19 documented as of this encounter
--- OUTSIDE RECORDS SUMMARY | 2025-11-08 19:54 | XMS_ITS | Encounter Summary ---
Author Organization [facility] Address [address] [place] [address] Care Team Providers Care Floor Polisher Name Role Phone Taco Alvarado EVENT REPRESENTATIVE Primary Care Provider [phone] Encounter Details Date Type Department Care Team (Latest Contact Info) Description 09/25/2001 Outpatient [facility] Medicine[address] [address] Mich Bishop MD [address] [phone] NONSUPP OTITIS MEDIA NOS (Primary Dx) Social History Tobacco Use Types Packs/Day Years Used Date Smoking Tobacco: Never Assessed Comments Unknown Sex and Gender Information Value Date Recorded Sex Assigned at Not on file Legal Sex Female 3:31 AM PLANT TENDER Gender Identity Not on file Sexual Orientation Not on file documented as of this encounter Plan of Treatment Not on file documented as of this encounter Visit Diagnoses Diagnosis Nonsuppurative otitis media, not specified as acute or chronic- Primary documented in this encounter Care Teams Floor Polisher Relationship Specialty Start Date End Date Taco Alvarado NP [address] [place] [phone] PCP - General NURSE PRACTITIONER 06/10/19 documented as of this encounter
--- OUTSIDE RECORDS SUMMARY | 2025-11-08 19:54 | XMS_ITS | Encounter Summary ---
Author Organization [facility] Address [address] [place] [address] Care Team Providers Care Web Page Designer Name Role Phone Taco Alvarado STRIP CATCHER Primary Care Provider Encounter Details Date Type Department Care Team (Latest Contact Info) Description 08/06/2002 Outpatient [facility] Medicine[address] [address] Mich Bishop MD [address] [phone] Gynecologic examination (Primary Dx) Social History Tobacco Use Types Packs/Day Years Used Date Smoking Tobacco: Never Assessed Comments Unknown Sex and Gender Information Value Date Recorded Sex Assigned at Not on file Legal Sex Female 3:31 AM POCKET SETTER Gender Identity Not on file Sexual Orientation Not on file documented as of this encounter Plan of Treatment Not on file documented as of this encounter Visit Diagnoses Diagnosis Gynecologic examination- Primary Gynecological examination documented in this encounter Care Teams Web Page Designer Relationship Specialty Start Date End Date Taco Alvarado NP [address] [place] [phone] PCP - General NURSE PRACTITIONER 06/10/19 documented as of this encounter
--- OUTSIDE RECORDS SUMMARY | 2025-11-08 19:54 | XMS_ITS | Encounter Summary ---
Author Organization [employer] Address [address] [place] [address] Care Team Providers Care Chair Finisher Name Role Phone Taco Alvarado NP Primary Care Provider Reason for Visit * Reason Comments Med Refill Encounter Details Date Type Department Care Team (Late st Contact Info) Description 10/30/2025 Refill [facility] [place] [address] [place] [address] Alaina Green, [facility] [address] [place] [address] Migraine without aura, not intractable, without status migrainosus Social History Tobacco Use Types Packs/Day Years Used Date Smoking Tobacco: Never Smokeless Tobacco: Never Alcohol Use Standard Drinks/Week Comments No 0 (1 standard drink = 0.6 oz pur e alcohol) Comments Unknown Sex and Gender Information Value Date Recorded Sex Assigned at Female 10/27/2025 8:19 AM MOTIVATIONAL SPEAKER Legal Sex Female 7:10 AM MOTIVATIONAL SPEAKER Gender Identity Female 10/27/2025 8:19 AM MOTIVATIONAL SPEAKER Sexual Orientation Straight 10/27/2025 8: 19 AM MOTIVATIONAL SPEAKER documented as of this encounter Plan of Treatment Upcoming Encounters Date Type Department Care Team (Late st Contact Info) Description 04/19/2026 2:00 PM CDT Office Visit [facility] [place] [address] [facility] [address] [place] [address] Alaina Green, PIE BAKERY LABORER [address] [facility] [address] [place] [address] documented as of this encounter Visit Diagnoses Diagnosis Migraine without aura, not intractable, without status migrainosus documented in this encounter Care Teams Chair Finisher Relationship Specialty Start Date End Date Taco Alvarado NP [address] [place] [phone] PCP - General NURSE PRACTITIONER 06/10/19 documented as of this encounter
--- OUTSIDE RECORDS SUMMARY | 2025-11-08 19:54 | XMS_ITS | Encounter Summary ---
Author Organization [facility] Address [address] [place] [address] Care Team Providers Care Gas Brazer Name Role Phone Taco Alvarado KNIT GOODS PRESS HAND Primary Care Provider Encounter Details Date Type Department Care Team (Latest Contact Info) Description 01/30/2002 Outpatient [facility] Medicine[address] [phone] Dale Ford MD [address], [place] [address] ACUTE BRONCHITIS (Primary Dx) Social History Tobacco Use Types Packs/Day Years Used Date Smoking Tobacco: Never Assessed Comments Unknown Sex and Gender Information Value Date Recorded Sex Assigned at Not on file Legal Sex Female 3:31 AM OPTICAL INSTRUMENT REPAIRER Gender Identity Not on file Sexual Orientation Not on file documented as of this encounter Plan of Treatment Not on file documented as of this encounter Visit Diagnoses Diagnosis Acute bronchitis- Primary documented in this encounter Care Teams Gas Brazer Relationship Specialty Start Date End Date Taco Alvarado NP [address] [place] [phone] PCP - General NURSE PRACTITIONER 06/10/19 documented as of this encounter
--- OUTSIDE RECORDS SUMMARY | 2025-11-08 19:54 | XMS_ITS | Encounter Summary ---
Author Organization [facility] Address [address] [place] [address] Care Team Providers Care Cat Skinner Name Role Phone Taco Alvarado NP Primary Care Provider Reason for Visit * Reason Comments Medication Refill Encounter Details Date Type Department Care Team (Late st Contact Info) Description 05/03/2017 Refill [facility] [place] [address] [place] [address] Alaina Green, [facility] [address] [facility] [address] [place] [address] Social History Tobacco Use Types Packs/Day Years Used Date Smoking Tobacco: Never Smokeless Tobacco: Never Alcohol Use Standard Drinks/Week Comments No 0 (1 standard drink = 0.6 oz pur e alcohol) Comments No Sex and Gender Information Value Date Recorded Sex Assigned at Not on file Legal Sex Female 3:31 AM COOPERATIVE EXTENSION AGENT Gender Identity Not on file Sexual Orientation Not on file documented as of this encounter Plan of Treatment Not on file documented as of this encounter Visit Diagnoses Not on filedocumented in this encounter Care Teams Cat Skinner Relationship Specialty Start Date End Date Taco Alvarado NP [address] [place] [phone] PCP - General NURSE PRACTITIONER 06/10/19 documented as of this encounter
[2025-11-08 19:59] VITALS: BP 133/97; PULSE 71; RESP 20; TEMP 36.9; O2SAT 99; BMI 39.1
[2025-11-08 20:09] VITALS: BP 133/97; PULSE 71; RESP 20; TEMP 36.9; O2SAT 99
--- NOTE | 2025-11-08 20:15 | ECG_ITS ---
[facility]: 2025-11[facility]08 Pat Name: Lissett Rudolph Department: Room: 152 Gender: Female Laser Operator: : 1980 Requested By: David Mobley Order Number: [id number] Gigi MD: WALDO YOU Measurements Intervals [place] Rate: 78 P: 0 [place]: 169 QRS: 3 QRSD: 85 T: 19 QT: 362 QTc: 413 Interpretive Statements SINUS RHYTHM No previous ECG available for comparison Electronically Signed On 11-09-2025 12:00:57 OB TECH by WALDO YOU [id number]
[2025-11-08 20:17] LABS: Hematocrit 41.6 % (36-47); Hemoglobin 13.60 g/dL (11.27-16.99); Mean Corpuscular HGB Conc 32.7 g/dL (30-55); Mean Corpuscular Hemoglobin 28.6 pg (27-33); Mean Corpuscular Volume 87.4 fl (85-98); Nucleated Red Blood Cells % 0 %; Platelet Count 265 10^3/cmm (157-399); Red Blood Count 4.76 10^6/uL (3.85-5.65); White Blood Count 8.15 10^3/uL (3.29-11.43)
--- NOTE | 2025-11-08 20:29 | ED.C_ITS ---
Documented by User: MIMI Pleitez 11/08/25 21:11 HPI - Psych 2 General: Chief Complaint: Psychiatric Symptoms Stated Complaint: MHE Time Seen by Provider: 11/08/25 19:59 Source: patient Mode of arrival: ambulatory Limitations: no limitations History of Present Illness: Patient is a 45-year-old female with past medical history of bipolar 2 disorder and generalized anxiety disorder who presents the emergency department for mental health evaluation. States that she thinks her medications adjustments because she is having repetitive episodes of losing it. She tells me that she takes Depakote and feels that this is not working for her, states that she has been taking this for her bipolar disorder. She has also been having lots of trouble sleeping, tells me she is not feeling suicidal at this time but today she had thought about killing herself by wrecking her car. She states that it has never gotten this bad before and she is concerned that she is going to start having worsening of her thoughts. She states that she lives at home with her 6-year-old child and boyfriend, there have been no issues at home she just thinks her medications are not working. She does note starting to have feelings of hopelessness as well, commenting that she thinks everyone would be better off without her. She is not endorsing any HI or hallucinations of any kind. No drug or alcohol use reported to me. MD complaint: suicidal ideation Onset (ago): day(s) Duration: getting worse History of same: Yes Associated symptoms: Reports depression and suicidal ideation; Deny auditory hallucinations, visual hallucinations or homicidal ideation If self harm: admits thoughts of self harm Related Data Home Medications ?Medication ?Instructions ?Recorded ?Confirmed ibuprofen 600 mg tablet 600 mg PO Q6H 01/05/2211/08 sumatriptan succinate 50 mg tablet 50 mg PO PER PKG DI R PRN Migraine 10/20/25 11/08/25 (Imitrex) Previous Rx's ?Medication ?Instructions ?Recorded divalproex 500 mg tablet,delayed 500 mg PO .7 pm #30 t abs 08/06/25 release (Depakote) atorvastatin 20 mg tablet 20 mg PO DAILY 30 days #30 t abs 09/07/25 cholecalciferol (vitamin D3) 1,250 50,000 unit PO Q7D #4 caps 09/07/25 mcg (50,000 unit) capsule levothyroxine 50 mcg tablet 50 mcg PO DAILY #30 tabs 1 meloxicam 15 mg tablet 15 mg PO DAILY 30 days #30 t abs 09/07/25 omeprazole magnesium 20 mg 20 mg PO DAILY 30 days #30 tabs 09/07/25 tablet,delayed release (Prilosec OTC) semaglutide 0.25 mg or 0.5 mg (2 0.5 mg (0.736 mL) SUB CUT .once 09/07/25 mg/3 mL) subcutaneous pen injector weekly #3 mL (Ozempic) naproxen 500 mg tablet (Naprosyn) 500 mg PO BID PRN pa in #20 tabs 09/13/25 modafinil 100 mg tablet (Provigil) 200 mg (2 x 100 mg) PO QAM #60 tabs 10/04/25 Allergies Allergy/AdvReac Type Severity Reaction Status Date / Time codeine Allergy swelling Verified 10/20/25 09:15 Penicillins Allergy rash Verified 10/20/25 09:15 tetracycline Allergy vomiting Verified 10/20/25 09:15 Review of Systems 2 General: Reports: 10 or more systems reviewed and unremarkable except in HPI and below Const: Denies: fever(s), chills or fatigue Eyes: Denies: change in vision ENMT: Denies: throat pain, ear or mastoid pain or nasal discharge Card: Denies: chest pain, palpitations, swelling of feet/ankles or lightheadedness Resp: Denies: dyspnea, productive cough or wheezing GI: Denies: abdominal pain, nausea, vomiting, diarrhea or constipation : Denies: flank pain, difficulty voiding, dysuria or urinary frequency Musc: Denies: neck pain, back pain or joint pain Skin/Breast: Denies: rash Neuro: Denies: headache(s), numbness in extremities or weakness in extremities Psych: Reports: anxiety, depression, hopelessness and suicidal ideation; Denies: visual hallucinations, auditory hallucinations, tactile hallucinations or homicidal ideation PFSH ED 2 PFSH: Medical History Primary narcolepsy without cataplexy Bipolar II disorder Psychiatric care Hyperlipidemia, mixed Irritable bowel syndrome with diarrhea Group B streptococcal carriage complicating Generalized anxiety disorder Excoriation (skin-picking) disorder Chronic GERD Hypothyroidism Surgical History Hx of bilateral salpingectomy History of tubal ligation History of cholecystectomy History of colonoscopy History of esophagogastroduodenoscopy (EGD) Family History Father Cancer stomach Heart disease Stroke Mother Hypertension Hyperlipidemia Diabetes Family/Other Breast cancer maternal aunt, diagnosed at unknown age Sister Diabetes Grandmother Diabetes paternal Stroke Denies family history of Colon cancer Ovarian cancer Anesthesia complication Bleeding disorder Uterine cancer Thyroid disease Social History Smoking and tobacco/nicotine status: unknown if used tobacco/nicotine Second hand smoke exposure: No Alcohol intake: never Substance/Drug Use: unknown Adopted: No Caregiver/support person: No Lives independently: Yes Household members: significant other and children Housing: House Marital status: Single Number of children: 1 service: No Current occupational status: employed Current occupation: [employer] Pets and animals: Yes Pets & animals: dog(s) Do you think of yourself as: Straight/Heterosexual Current gender identity: Female Female Reproductive History: Date of last menstrual period: 11/01/25 Para: 1 Physical Exam 2 Const: COMMON NORMALS: no acute distress, patient oriented x3 and no limitations GENERAL APPEARANCE: cooperative, comfortable and well developed ORIENTATION/CONSCIOUSNESS: Yes awake, Yes oriented to person, Yes oriented to place and Yes oriented to time Neck/C-Spine: COMMON NORMALS: full ROM, supple and no JVD Resp: COMMON NORMALS: normal respiratory effort, No retractions, No use of accessory muscles and clear to auscultation bilaterally AUSCULTATION: clear to auscultation bilaterally Cardio: COMMON NORMALS: no JVD, regular rate, regular rhythm, No clicks present (Cardio), No murmurs present (Cardio) and No rub (Cardio) RATE: r egular rate RHYTHM: regular rhythm Extremity: COMMON NORMALS: normal to inspection, full ROM and capillary refill normal Neuro: COMMON NORMALS: patient oriented x3, moves all extremities, no focal motor deficits and no sensory deficits noted SENSORIUM/ORIENTATION: Yes oriented to person, Yes oriented to place and Yes oriented to time Psych: COMMON NORMALS: mental status grossly normal and Normal thought process present THOUGHT PROCESS: Normal thought process present THOUGHT CONTENT: Y es Suicidality present, No Homicidality present and No Hallucination(s) present Skin: COMMON NORMALS: no rashes or lesions noted GENERAL SKIN EXAM: no rashes or lesions noted Course 2 Vital Signs: Vital signs: Vital Signs Temperature 97.5 F L 11/08/25 22:00 Pulse Rate 75 11/08/25 22:00 Respiratory Rate 17 11/08/25 22:00 Blood Pressure 149/91 11/08/25 22:00 Pulse Oximetry 100 11/08/25 22:00 Oxygen Delivery Me thod Room Air 11/08/25 22:00 MDM - Psych Medical Decision Making Patient presented for reports of SI, stating that she was having thoughts of wrecking her car. Lives with 6-year-old child at home and states that she thinks her meds are not working and would like to have them evaluated as she is starting to get concerned of her suicidal thoughts. No HI or hallucinations. Calm and cooperative here in the ED, cleared medically will transfer to neuropsychiatric unit where she is accepted by Dr. Norris. Dr. Macias placing admit orders. Lab Data 11/08/25 20:09 11/08/25 20:09 Laboratory Results WBC 8.15 10^3/uL (3.29-11.43) 11/08/25 20:09 RBC 4.76 10^6/uL (3.85-5.65) 11/08/25 20:09 Hgb 13.60 g/dL (11.27-16.99) 11/08/25 20:09 Hct 41.6 % (36-47) 11/08/25 20:09 MCV 87.4 fl (85-98) 11/08/25 20:09 MCH 28.6 pg (27-33) 11/08/25 20:09 MCHC 32.7 g/dL (30-55) 11/08/25 20:09 RDW 11.9 % (12.1-15.1) L 11/08/25 20:09 Plt Count 265 10^3/cmm (157-399) 11/08/25 20:09 MPV 10.0 fL (7.4-10.4) 11/08/25 20:09 Neut % (Auto) 75.5 % 11/08/25 20:09 Lymph % (Auto) 19.1 % 11/08/25 20:09 [place] % (Auto) 4.3 % 11/08/25 20:09 Eos % (Auto) 0.5 % 11/08/25 20:09 Baso % (Auto) 0.4 % 11/08/25 20:09 Neut # (Auto) 6.15 10^3/uL (1.8-7.7) 11/08/25 20:09 Lymph # (Auto) 1.6 10^3/uL (0.8-4.8) 11/08/25 20:09 [place] # (Auto) 0.4 10^3/uL (0.2-0.9) 11/08/25 20:09 Eos # (Auto) 0.0 10^3/uL (0.0-0.8) 11/08/25 20:09 Baso # (Auto) 0.0 10^3/uL (0.0-0.1) 11/08/25 20:09 Nucleated RBC % (auto) 0 % 11/08/25 20:09 Nucleated RBCs # 0.0 /100WBC 11/08/25 20:09 Sodium 140 mmol/L (136-145) 11/08/25 20:09 Potassium 3.7 mmol/L (3.5-5.1) 11/08/25 20:09 Chloride 104 mmol/L (98-107) 11/08/25 20:09 Carbon Dioxide 23 mmol/L (22-29) 11/08/25 20:09 Anion Gap 16.7 (5-19) 11/08/25 20:09 BUN 15 mg/dL (6-20) 11/08/25 20:09 Creatinine 0.8 mg/dL (0.5-0.9) 11/08/25 20:09 GFR Calculation 77.2 mL/min (90-130) L 11/08/25 20:09 Glucose 115 mg/dL (65-115) 11/08/25 20:09 Calculated Osmolality 292 mOsm/kg (285-295) 11/08/25 20:09 Calcium 8.6 mg/dL (8.5-10.5) 11/08/25 20:09 Total Bilirubin 0.4 mg/dL (0.15-1.2) 11/08/25 20:09 AST 16 U/L (0-32) 11/08/25 20:09 ALT 14 U/L (0-33) 11/08/25 20:09 Alkaline Phosphatase 74 U/L (35-105) 11/08/25 20:09 Total Protein 6.6 g/dL (6.6-8.7) 11/08/25 20:09 Albumin 4.2 g/dL (3.5-5.2) 11/08/25 20:09 Globulin 2.4 g/dL (1.3-4.6) 11/08/25 20:09 Salicylates 0.8 mg/dL (3-10) L 11/08/25 20:09 Acetaminophen < 5.0 ug/mL (10-30) L 11/08/25 20:09 Ethyl Alcohol 12 mg/dL (0-10) H 11/08/25 20:09 No radiology studies performed this visit Discharge Plan Discharge Patient Disposition: Admitted As Inpatient Admit Provider: Rudy Norris Clinical Impression: Suicidal ideation Condition: Stable Coding Level of Care Code ED Early Intervention School Psychologist for [facility]g Fwd Documented by User: Lázaro Macias DO 11/09/25 00:24 HPI - Psych 2 General: Chief Complaint: Psychiatric Symptoms Stated Complaint: MHE Time Seen by Provider: 11/08/25 19:59 Related Data Home Medications ?Medication ?Instructions ?Recorded ?Confirmed ibuprofen 600 mg tablet 600 mg PO Q6H 01/05/2211/08 sumatriptan succinate 50 mg tablet 50 mg PO PER PKG DI R PRN Migraine 10/20/25 11/08/25 (Imitrex) Previous Rx's ?Medication ?Instructions ?Recorded divalproex 500 mg tablet,delayed 500 mg PO .7 pm #30 t abs 08/06/25 release (Depakote) atorvastatin 20 mg tablet 20 mg PO DAILY 30 days #30 t abs 09/07/25 cholecalciferol (vitamin D3) 1,250 50,000 unit PO Q7D #4 caps 09/07/25 mcg (50,000 unit) capsule levothyroxine 50 mcg tablet 50 mcg PO DAILY #30 tabs 1 meloxicam 15 mg tablet 15 mg PO DAILY 30 days #30 t abs 09/07/25 omeprazole magnesium 20 mg 20 mg PO DAILY 30 days #30 tabs 09/07/25 tablet,delayed release (Prilosec OTC) semaglutide 0.25 mg or 0.5 mg (2 0.5 mg (0.736 mL) SUB CUT .once 09/07/25 mg/3 mL) subcutaneous pen injector weekly #3 mL (Ozempic) naproxen 500 mg tablet (Naprosyn) 500 mg PO BID PRN pa in #20 tabs 09/13/25 modafinil 100 mg tablet (Provigil) 200 mg (2 x 100 mg) PO QAM #60 tabs 10/04/25 Allergies Allergy/AdvReac Type Severity Reaction Status Date / Time codeine Allergy swelling Verified 10/20/25 09:15 Penicillins Allergy rash Verified 10/20/25 09:15 tetracycline Allergy vomiting Verified 10/20/25 09:15 PFSH ED 2 PFSH: Medical History Primary narcolepsy without cataplexy Bipolar II disorder Psychiatric care Hyperlipidemia, mixed Irritable bowel syndrome with diarrhea Group B streptococcal carriage complicating Generalized anxiety disorder Excoriation (skin-picking) disorder Chronic GERD Hypothyroidism Surgical History Hx of bilateral salpingectomy History of tubal ligation History of cholecystectomy History of colonoscopy History of esophagogastroduodenoscopy (EGD) Family History Father Cancer stomach Heart disease Stroke Mother Hypertension Hyperlipidemia Diabetes Family/Other Breast cancer maternal aunt, diagnosed at unknown age Sister Diabetes Grandmother Diabetes paternal Stroke Denies family history of Colon cancer Ovarian cancer Anesthesia complication Bleeding disorder Uterine cancer Thyroid disease Social History Smoking and tobacco/nicotine status: unknown if used tobacco/nicotine Second hand smoke exposure: No Alcohol intake: never Substance/Drug Use: unknown Adopted: No Caregiver/support person: No Lives independently: Yes Household members: significant other and children Housing: House Marital status: Single Number of children: 1 service: No Current occupational status: employed 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 Pets and animals: Yes Pets & animals: dog(s) Do you think of yourself as: Straight/Heterosexual Current gender identity: Female Course 2 Vital Signs: Vital signs: Vital Signs Temperature 97.5 F L 11/08/25 22:00 Pulse Rate 75 11/08/25 22:00 Respiratory Rate 17 11/08/25 22:00 Blood Pressure 149/91 11/08/25 22:00 Pulse Oximetry 100 11/08/25 22:00 Oxygen Delivery Me thod Room Air 11/08/25 22:00 MDM - Psych Medical Decision Making Patient presented for reports of SI, stating that she was having thoughts of wrecking her car. Lives with 6-year-old child at home and states that she thinks her meds are not working and would like to have them evaluated as she is starting to get concerned of her suicidal thoughts. No HI or hallucinations. Calm and cooperative here in the ED, cleared medically will transfer to neuropsychiatric unit where she is accepted by Dr. Norris. Dr. Macias placing admit orders. This patient was originally seen by Mr. Paulino PA-C. I agree with his history, evaluation, and management. Admission orders have been written Lab Data 11/08/25 20:09 11/08/25 20:09 Laboratory Results WBC 8.15 10^3/uL (3.29-11.43) 11/08/25 20:09 RBC 4.76 10^6/uL (3.85-5.65) 11/08/25 20:09 Hgb 13.60 g/dL (11.27-16.99) 11/08/25 20:09 Hct 41.6 % (36-47) 11/08/25 20:09 MCV 87.4 fl (85-98) 11/08/25 20:09 MCH 28.6 pg (27-33) 11/08/25 20: MCHC 32.7 g/dL (30-55) 11/08/25 20:09 RDW 11.9 % (12.1-15.1) L 11/08/25 20:09 Plt Count 265 10^3/cmm (157-399) 11/08/25 20:09 MPV 10.0 fL (7.4-10.4) 11/08/25 20:09 Neut % (Auto) 75.5 % 11/08/25 20:09 Lymph % (Auto) 19.1 % 11/08/25 20:09 [place] % (Auto) 4.3 % 11/08/25 20:09 Eos % (Auto) 0.5 % 11/08/25 20:09 Baso % (Auto) 0.4 % 11/08/25 20:09 Neut # (Auto) 6.15 10^3/uL (1.8-7.7) 11/08/25 20:09 Lymph # (Auto) 1.6 10^3/uL (0.8-4.8) 11/08/25 20:09 [place] # (Auto) 0.4 10^3/uL (0.2-0.9) 11/08/25 20:09 Eos # (Auto) 0.0 10^3/uL (0.0-0.8) 11/08/25 20:09 Baso # (Auto) 0.0 10^3/uL (0.0-0.1) 11/08/25 20:09 Nucleated RBC % (auto) 0 % 11/08/25 20:09 Nucleated RBCs # 0.0 /100WBC 11/08/25 20:09 Sodium 140 mmol/L (136-145) 11/08/25 20:09 Potassium 3.7 mmol/L (3.5-5.1) 11/08/25 20:09 Chloride 104 mmol/L (98-107) 11/08/25 20:09 Carbon Dioxide 23 mmol/L (22-29) 11/08/25 20:09 Anion Gap 16.7 (5-19) 11/08/25 20:09 BUN 15 mg/dL (6-20) 11/08/25 20:09 Creatinine 0.8 mg/dL (0.5-0.9) 11/08/25 20:09 GFR Calculation 77.2 mL/min (90-130) L 11/08/25 20:09 Glucose 115 mg/dL (65-115) 11/08/25 20:09 Calculated Osmolality 292 mOsm/kg (285-295) 11/08/25 20:09 Calcium 8.6 mg/dL (8.5-10.5) 11/08/25 20:09 Total Bilirubin 0.4 mg/dL (0.15-1.2) 11/08/25 20:09 AST 16 U/L (0-32) 11/08/25 20:09 ALT 14 U/L (0-33) 11/08/25 20:09 Alkaline Phosphatase 74 U/L (35-105) 11/08/25 20:09 Total Protein 6.6 g/dL (6.6-8.7) 11/08/25 20:09 Albumin 4.2 g/dL (3.5-5.2) 11/08/25 20:09 Globulin 2.4 g/dL (1.3-4.6) 11/08/25 20:09 Salicylates 0.8 mg/dL (3-10) L 11/08/25 20:09 Acetaminophen < 5.0 ug/mL (10-30) L 11/08/25 20:09 Ethyl Alcohol 12 mg/dL (0-10) H 11/08/25 20:09 Discharge Plan Discharge Patient Disposition: Admitted As Inpatient Admit Provider: Rudy Norris Clinical Impression: Suicidal ideation Condition: Stable Coding Level of Care Code ED Early Intervention [employer] Psychologist for [facility] Paul
[2025-11-08 20:33] LABS: Alanine Aminotransferase 14 U/L (0-33); Albumin Level 4.2 g/dL (3.5-5.2); Alcohol Level 12 mg/dL (0-10); Alkaline Phosphatase 74 U/L (35-105); Anion Gap 16.7 (5-19); Aspartate Amino Transferase 16 U/L (0-32); Blood Urea Nitrogen 15 mg/dL (6-20); Calcium 8.6 mg/dL (8.5-10.5); Carbon Dioxide 23 mmol/L (22-29); Chloride 104 mmol/L (98-107); Globulin 2.4 g/dL (1.3-4.6); Glucose 115 mg/dL (65-115); Osmolality Calculated 292 mOsm/kg (285-295); Potassium 3.7 mmol/L (3.5-5.1); Salicylate 0.8 mg/dL (3-10); Sodium 140 mmol/L (136-145); Total Protein 6.6 g/dL (6.6-8.7)
[2025-11-08 20:34] LABS: Acetaminophen < 5.0 ug/mL (10-30)
[2025-11-08 21:53] VITALS: BP 149/91; PULSE 75; RESP 17; TEMP 36.4; O2SAT 100
[2025-11-08 22:00] VITALS: BP 149/91; PULSE 75; RESP 17; TEMP 36.4; O2SAT 100
[2025-11-09 05:32] VITALS: BP 122/86; PULSE 79; RESP 17; TEMP 36.5; O2SAT 98
[2025-11-09 05:54] LABS: PCP Screen Urine Negative (Negative)
[2025-11-09] MEDS: ATORVASTATIN 20 MG TABLET PO (08:05)
--- NOTE | 2025-11-09 11:55 | PC.NURSE ---
Dr. Ybarra gave a v/o for Modafinil 200mg po every morning and Quleptil 60mg po daily to be called into the OP pharmacy and taken over to the IP pharmacy to be labeled for us to dispense. He cannot adjust her medications without her being on all her home meds.
--- NOTE | 2025-11-09 13:13 | W.PM.NPUH&PS ---
Providers/Chief Complaint Admitting Physician: Rudy Norris MD Primary Care Provider: SERVANDO Ovalles Chief Complaint: MHE HPI NPU History of Present Illness Lissett Rudolph is a 45 year old female who presented voluntarily to the emergency department reporting that she had thoughts about killing herself by wrecking a car. She reports that she has been having increased problems with mood swings every few days that appears to be associated with her frustration and inability to control her anxiety. She reports that she chronically struggles with being able to control her worry. She reports that her worry often prevents her from falling asleep and staying asleep. She reports that her worry is pervasive and often leads to her having problems with increased frustration and irritability. She reports chronically feeling as if something bad is going to happen to her. She endorses a past history of major depression and states that she has had problems with low energy and low motivation. She reports that she has had depressed mood for several days. She reports that she is not currently having suicidal thoughts. She reports no clear history of manic or hypomanic symptoms but describes having problems with poor frustration tolerance. She reports that she does have mood fluctuations but denied any racing thoughts. She denied any increased periods of grandiosity. She reports no intense period of irritability lasting for days at a time. She does report having difficulties falling asleep but did not endorse any clear history of decreased need for sleep. She reports that she had recently been diagnosed with narcolepsy and complained of having chronic problems for several years with low energy and excessive daytime sleepiness. She reports no history of cataplexy. She reports that she had also been diagnosed with migraine headaches and suggested that her migraine medication, quilipta, has been helpful she also reports that she has recently been placed on Provigil 200 mg daily and reports improvement in her ability to stay on task. She reports having chronic problems with sustaining attention since childhood. She reports that she is frequently messy and disorganized. She describes that she frequently loses things and reports poor ability to prioritize. She had reported having struggles with starting projects and not being able to complete them in a timely fashion. She reports that she is frequently late. She reports having problems with disorganization. She reports having struggles with shifting her attention. She denies any past history or current history of psychosis. She had previously reported that she had been on Depakote but stated that it had made her tired and so she had stopped this medication as it had been given to her for the treatment of type II bipolar disorder. She denies any change currently in appetite. She denies any current feelings of hopelessness or worthlessness. Inpatient psychiatric history: None Outpatient psychiatric history: She has been seen through the behavioral health clinic at [facility] for at least 10 years. She currently receives outpatient follow-up under [facility]. She is currently not receiving any outpatient psychotherapy. Previous diagnoses include bipolar 2 disorder, generalized anxiety disorder, and major depressive disorder. Substance abuse history: None reported Medical history: Narcolepsy without cataplexy, hypothyroidism, migraine headaches, obesity, hypercholesterolemia, vitamin D deficiency Surgical history: Cholecystectomy, tubal ligation bilaterally, Allergies: Tetracycline, penicillin, codeine Medications: Depakote (not taking), omeprazole, meloxicam, atorvastatin, levothyroxine, modafinil 200 mg daily, Imitrex as needed, Qulipta daily, naproxen, omeprazole, Ozempic, vitamin D3, Legal history: None Family psychiatric history: Anxiety-mother history: None Social history: Patient grew up in [place] and reports that she was raised by her parents. She has 1 brother and 1 sister. She had reported being an average student in school and had reported no history of a learning disorder. She had endorsed a history of difficulties with concentration and school. She had ultimately graduated from high school. She had reported no prior history of sexual physical or emotional abuse. Patient currently works at a senior living locally and lives in [place] with her boyfriend and 6-year-old child. Meds NPU Home Medications ?Medication ?Instructions ?Recorded ?Confirmed ?Last Taken ?Type ibuprofen 600 mg tablet 600 mg PO Q6H 01/05/22 11/08/25 Unknown History divalproex 500 mg tablet,delayed 500 mg PO .7 pm #30 tabs 08/06/25 11/08/25 Unknown Rx release (Depakote) atorvastatin 20 mg tablet 20 mg PO DAILY 30 days #30 tabs 09/07/25 11/08/25 Unknown Rx cholecalciferol (vitamin D3) 1,250 50,000 unit PO Q7D #4 caps 09/07/25 11/08/25 Unknown Rx mcg (50,000 unit) capsule levothyroxine 50 mcg tablet 50 mcg PO DAILY #30 tabs 09/07/25 11/08/25 Unknown Rx meloxicam 15 mg tablet 15 mg PO DAILY 30 days #30 tabs 09/07/25 11/08/25 Unknown Rx omeprazole magnesium 20 mg 20 mg PO DAILY 30 days #30 tabs 09/07/25 11/08/25 Unknown Rx tablet,delayed release (Prilosec OTC) semaglutide 0.25 mg or 0.5 mg (2 0.5 mg (0.736 mL) SUBCUT .once 09/07/25 11/08/25 Unknown Rx mg/3 mL) subcutaneous pen injector weekly #3 mL (Ozempic) naproxen 500 mg tablet (Naprosyn) 500 mg PO BID PRN pain #20 tabs 09/13/25 11/08/25 Unknown Rx modafinil 100 mg tablet (Provigil) 200 mg (2 x 100 mg) PO QAM #60 tabs 10/04/25 11/08/25 Unknown Rx sumatriptan succinate 50 mg tablet 50 mg PO PER PKG DIR PRN Migraine 10/20/25 11/08/25 Unknown History (Imitrex) Allergies Allergy/AdvReac Type Severity Reaction Status Date / Time codeine Allergy swelling Verified 10/20/25 09:15 Penicillins Allergy rash Verified 10/20/25 09:15 tetracycline Allergy vomiting Verified 10/20/25 09:15 PFSH NPU PFSH: Medical History (Updated 11/09/25 @ 13:36 by Malcolm Ybarra MD) Primary narcolepsy without cataplexy Bipolar II disorder Psychiatric care Hyperlipidemia, mixed Irritable bowel syndrome with diarrhea Group B streptococcal carriage complicating Generalized anxiety disorder Excoriation (skin-picking) disorder Chronic GERD Hypothyroidism Surgical History Hx of bilateral salpingectomy History of tubal ligation History of cholecystectomy History of colonoscopy History of esophagogastroduodenoscopy (EGD) Family History Father Cancer stomach Heart disease Stroke Mother Hypertension Hyperlipidemia Diabetes Family/Other Breast cancer maternal aunt, diagnosed at unknown age Sister Diabetes Grandmother Diabetes paternal Stroke Denies family history of Colon cancer Ovarian cancer Anesthesia complication Bleeding disorder Uterine cancer Thyroid disease Social History Smoking and tobacco/nicotine status: unknown if used tobacco/nicotine Second hand smoke exposure: No Alcohol intake: never Substance/Drug Use: unknown Adopted: No Caregiver/support person: No Lives independently: Yes Household members: significant other and children Housing: House Marital status: Single Number of children: 1 service: No Current occupational status: employed Current occupation: [employer] Pets and animals: Yes Pets & animals: dog(s) Do you think of yourself as: Straight/Heterosexual Current gender identity: Female Female Reproductive History: Para: 1 Mental Status Exam MSE Comments: The patient is a casually dressed overweight female who appears her stated age with fair eye contact and normal gait. Her hygiene was fair. There was no evidence of any abnormal involuntary motor movements, tics, or tremors appreciated. Her speech was productive and normal in regards to rate, rhythm, and prosody. Her mood was described as okay. Her affect appeared somewhat euthymic. Her thought process was linear, logical, but overall circumstantial. Her thought content revealed no active suicidal or homicidal ideation. There was no evidence of any delusional thinking. She did not appear to be responding to internal stimuli. Her attention span appeared poor as she appeared easily distracted. She was alert and oriented to person, place, time, and situation. Her recent and remote memory appear grossly intact. Her insight was limited. Her judgment appeared guarded. Her impulse control appeared poor. Vitals/I&O/Wt Last Vital Signs Temp 97.7 F 11/09/25 05:32 Pulse 79 11/09/25 05:32 Resp 17 11/09/25 05:32 BP 122/86 11/09/25 05:32 Pulse Ox 98 11/09/25 05:32 O2 Del Method Room Air 11/09/25 05:32 Weight last 48 hrs Weight 97.069 kg Data NPU 11/08/25 20:09 11/08/25 20:09 A&P Assessment and plan 1. Generalized anxiety disorder: 2. Suicidal ideation: 3. ADHD (attention deficit hyperactivity disorder), combined type: 4. MDD (major depressive disorder), recurrent episode, moderate: Plan: 45-year-old female with a history of clear generalized anxiety disorder along with some symptoms that support ADHD and a past history of major depressive episodes admitted with fleeting suicidal thoughts that are now denied. #1.? Engage patient in individual milieu and group therapy. #2?? Restart outpatient medications except for Depakote. Begin zoloft to target anxiety with plan to slowly titrate on outpatient basis. Recommend psychotherapy, CBT to target anxiety. #3??? Patient would benefit from outpatient psychological testing to confirm ADHD. Modafinil has appeared to be better for patient's ADHD symptoms since its initiation. ? #4?? TO-15 minute checks? #5?? Will attempt to gather collateral information PDMP PDMP Reviewed: Not Reviewed Involuntary Hold Information Hold Status: Date/Time Hold Expires: voluntary Attestations NPU Medical Necessity Statement*: Inpatient hospitalization is medically necessary and deemed to be the clinically appropriate intervention at this time. Medications will be initiated and adjusted accordingly.? The patient will be hospitalized for at least two midnights.? The patient?s likely length of stay is 3-4 days.? Coding Level of Care Code Acute Code for Chg Fwd Diagnoses Generalized anxiety disorder F41.1 Suicidal ideation R45.851 ADHD (attention deficit hyperactivity disorder), combined type F90.2 MDD (major depressive disorder), recurrent episode, moderate F33.1
--- NOTE | 2025-11-09 13:46 | PC.NURSE ---
We were just now able to receive pt Modafinil, Dr Ybarra gave a v/o for us to give 100mg now and cont her 200mg qam in the morning.
[2025-11-09 14:00] VITALS: BP 131/82; PULSE 87; RESP 16; TEMP 36.7; O2SAT 98
[2025-11-09 19:43] VITALS: BP 132/88; PULSE 80; RESP 16; TEMP 36.7; O2SAT 97
[2025-11-10 06:00] VITALS: BP 123/76; PULSE 71; RESP 17; TEMP 36.4; O2SAT 99
[2025-11-10] MEDS: ATORVASTATIN 20 MG TABLET PO (07:53)
[2025-11-10 14:00] VITALS: BP 120/76; PULSE 76; RESP 16; TEMP 36.6; O2SAT 100
--- NOTE | 2025-11-10 15:28 | P.NPUPN_ITS ---
Subjective NPU 2 Subjective: Patient presented today reporting that she is doing okay. She reports that her medication was initiated and she is starting to feel better already. She reports that she is hopeful that she could be discharged tomorrow. We discussed that her chart would be reviewed and we would discuss the possibility in the morning. She denied any side effects to her medication. Mental Status Exam 2 MSE Comments: The patient is a casually dressed overweight female who appears her stated age with fair eye contact and normal gait. Her hygiene was fair. There was no evidence of any abnormal involuntary motor movements, tics, or tremors appreciated. Her speech was productive and normal in regards to rate, rhythm, and prosody. Her mood was described as okay. Her affect appeared somewhat euthymic. Her thought process was linear, logical, but overall circumstantial. Her thought content revealed no active suicidal or homicidal ideation. There was no evidence of any delusional thinking. She did not appear to be responding to internal stimuli. Her attention span appeared poor as she appeared easily distracted. She was alert and oriented to person, place, time, and situation. Her recent and remote memory appear grossly intact. Her insight was limited. Her judgment appeared guarded. Her impulse control appeared poor. Vitals/I&O/Wt Last Vital Signs Temp 98 F 11/10/25 14:00 Pulse 76 11/10/25 14:00 Resp 16 11/10/25 14:00 BP 120/76 11/10/25 14:00 Pulse Ox 100 11/10/25 14:00 O2 Del Method Room Air 11/10/25 14:00 Weight last 48 hrs Weight 97.069 kg Data NPU 11/08/25 20:09 11/08/25 20:09 A&P Assessment and plan 1. Generalized anxiety disorder: 2. Suicidal ideation: 3. ADHD (attention deficit hyperactivity disorder), combined type: 4. MDD (major depressive disorder), recurrent episode, moderate: Plan: 45-year-old female with a history of clear generalized anxiety disorder along with some symptoms that support ADHD and a past history of major depressive episodes admitted with fleeting suicidal thoughts that are now denied. #1.? Engage patient in individual milieu and group therapy. #2?? Restart outpatient medications except for Depakote. Began zoloft to target anxiety with plan to slowly titrate on outpatient basis. Recommend psychotherapy, CBT to target anxiety. #3??? Patient would benefit from outpatient psychological testing to confirm ADHD. Modafinil has appeared to be better for patient's ADHD symptoms since its initiation. ? #4?? TO-15 minute checks? #5?? Will attempt to gather collateral information PDMP PDMP Reviewed: Not Reviewed Involuntary Hold Information 2 Hold Status: Date/Time Hold Expires: voluntary Attestations NPU 2 Medical Necessity Statement*: Inpatient hospitalization is medically necessary and the clinically appropriate intervention at this time. We will monitor/initiate medications and make changes as indicated.? The patient?s likely length of stay is 2-3 days.? Coding Level of Care Code Acute Code for Chg Fwd Diagnoses Generalized anxiety disorder F41.1 Suicidal ideation R45.851 ADHD (attention deficit hyperactivity disorder), combined type F90.2 MDD (major depressive disorder), recurrent episode, moderate F33.1
[2025-11-10 20:46] VITALS: BP 135/81; PULSE 75; RESP 17; TEMP 36.2; O2SAT 99
[2025-11-11 06:00] VITALS: RESP 16
--- NOTE | 2025-11-11 06:32 | PC.NURSE ---
pt asleep, vitals not done per order, nurse aware, resp 16
--- NOTE | 2025-11-11 07:43 | P.NPUPN_ITS ---
Subjective NPU 2 Subjective: Patient presented today reporting that she is doing okay. She denied any issues with the medication and we discussed the risks, benefits and alternatives of increasing her Zoloft to 50 mg p.o. daily. She reports already feeling improvement from that. She reports that she has access to all of her other medications when she leaves. We discussed the plan for discharge in the morning if all things stay as they are. She denied any side effects of the medication. Mental Status Exam 2 MSE Comments: The patient is a casually dressed overweight female who appears her stated age with fair eye contact and normal gait. Her hygiene was fair. There was no evidence of any abnormal involuntary motor movements, tics, or tremors appreciated. Her speech was productive and normal in regards to rate, rhythm, and prosody. Her mood was described as better. Her affect appeared somewhat euthymic. Her thought process was linear, logical, and organized. Her thought content revealed no active suicidal or homicidal ideation. There was no evidence of any delusional thinking. She did not appear to be responding to internal stimuli. Her attention span appeared poor as she appeared easily distracted. She was alert and oriented to person, place, time, and situation. Her recent and remote memory appear grossly intact. Her insight was limited but improving. Her judgment appeared improving. Her impulse control appeared to be improving. Vitals/I&O/Wt Last Vital Signs Temp 97.2 F L 11/10/25 20:46 Pulse 75 11/10/25 20:46 Resp 16 11/11/25 06:00 BP 135/81 11/10/25 20:46 Pulse Ox 99 11/10/25 20:46 O2 Del Method Room Air 11/10/25 20:46 Data NPU 11/08/25 20:09 11/08/25 20:09 A&P Assessment and plan 1. Generalized anxiety disorder: 2. Suicidal ideation: 3. ADHD (attention deficit hyperactivity disorder), combined type: 4. MDD (major depressive disorder), recurrent episode, moderate: Plan: 45-year-old female with a history of clear generalized anxiety disorder along with some symptoms that support ADHD and a past history of major depressive episodes admitted with fleeting suicidal thoughts that are now denied. #1.? Engage patient in individual milieu and group therapy. #2?? Restart outpatient medications except for Depakote. Began zoloft to target anxiety with plan to slowly titrate on outpatient basis. Increase Zoloft to 50 mg p.o. daily. Recommend psychotherapy, CBT to target anxiety. #3??? Patient would benefit from outpatient psychological testing to confirm ADHD. Modafinil has appeared to be better for patient's ADHD symptoms since its initiation. ? #4?? TO-15 minute checks? #5?? Will attempt to gather collateral information PDMP PDMP Reviewed: Not Reviewed Involuntary Hold Information 2 Hold Status: Date/Time Hold Expires: voluntary Attestations NPU 2 Medical Necessity Statement*: Inpatient hospitalization is medically necessary and the clinically appropriate intervention at this time. We will monitor/initiate medications and make changes as indicated.? The patient?s likely length of stay is 1-3 days.? Coding Level of Care Code Acute Code for Chg Fwd Diagnoses Generalized anxiety disorder F41.1 Suicidal ideation R45.851 ADHD (attention deficit hyperactivity disorder), combined type F90.2 MDD (major depressive disorder), recurrent episode, moderate F33.1
[2025-11-11] MEDS: ATORVASTATIN 20 MG TABLET PO (08:53)
[2025-11-11 14:00] VITALS: BP 129/78; PULSE 92; RESP 16; TEMP 36.6; O2SAT 100
[2025-11-11 20:18] VITALS: BP 147/90; PULSE 93; RESP 18; TEMP 36.6; O2SAT 95
--- NOTE | 2025-11-12 03:04 | PC.NURSE ---
Pt saaid her chest felt strange, but wasn't really hurting and she couldn't sleep. Pt was given medicine to help and an extra blanket to help.
--- NOTE | 2025-11-12 06:20 | PC.NURSE ---
vitals vs not collected pt layong in bed with both eyes closed resp18 nurse notified
[2025-11-12] MEDS: ATORVASTATIN 20 MG TABLET PO (08:10)
--- NOTE | 2025-11-12 11:33 | W.PM.NPUDCS ---
Diagnoses at Discharge Discharge Diagnosis 1. Generalized anxiety disorder: 2. Suicidal ideation: 3. ADHD (attention deficit hyperactivity disorder), combined type: 4. MDD (major depressive disorder), recurrent episode, moderate: Reason for Visit Reason for Visit: MHE Brief History: History of Present Illness Lissett Rudolph is a 45 year old female who presented voluntarily to the emergency department reporting that she had thoughts about killing herself by wrecking a car. She reports that she has been having increased problems with mood swings every few days that appears to be associated with her frustration and inability to control her anxiety. She reports that she chronically struggles with being able to control her worry. She reports that her worry often prevents her from falling asleep and staying asleep. She reports that her worry is pervasive and often leads to her having problems with increased frustration and irritability. She reports chronically feeling as if something bad is going to happen to her. She endorses a past history of major depression and states that she has had problems with low energy and low motivation. She reports that she has had depressed mood for several days. She reports that she is not currently having suicidal thoughts. She reports no clear history of manic or hypomanic symptoms but describes having problems with poor frustration tolerance. She reports that she does have mood fluctuations but denied any racing thoughts. She denied any increased periods of grandiosity. She reports no intense period of irritability lasting for days at a time. She does report having difficulties falling asleep but did not endorse any clear history of decreased need for sleep. She reports that she had recently been diagnosed with narcolepsy and complained of having chronic problems for several years with low energy and excessive daytime sleepiness. She reports no history of cataplexy. She reports that she had also been diagnosed with migraine headaches and suggested that her migraine medication, quilipta, has been helpful she also reports that she has recently been placed on Provigil 200 mg daily and reports improvement in her ability to stay on task. She reports having chronic problems with sustaining attention since childhood. She reports that she is frequently messy and disorganized. She describes that she frequently loses things and reports poor ability to prioritize. She had reported having struggles with starting projects and not being able to complete them in a timely fashion. She reports that she is frequently late. She reports having problems with disorganization. She reports having struggles with shifting her attention. She denies any past history or current history of psychosis. She had previously reported that she had been on Depakote but stated that it had made her tired and so she had stopped this medication as it had been given to her for the treatment of type II bipolar disorder. She denies any change currently in appetite. She denies any current feelings of hopelessness or worthlessness. Inpatient psychiatric history: None Outpatient psychiatric history: She has been seen through the behavioral health clinic at [facility] for at least 10 years. She currently receives outpatient follow-up under B[facility]. She is currently not receiving any outpatient psychotherapy. Previous diagnoses include bipolar 2 disorder, generalized anxiety disorder, and major depressive disorder. Substance abuse history: None reported Medical history: Narcolepsy without cataplexy, hypothyroidism, migraine headaches, obesity, hypercholesterolemia, vitamin D deficiency Surgical history: Cholecystectomy, tubal ligation bilaterally, Allergies: Tetracycline, penicillin, codeine Medications: Depakote (not taking), omeprazole, meloxicam, atorvastatin, levothyroxine, modafinil 200 mg daily, Imitrex as needed, Qulipta daily, naproxen, omeprazole, Ozempic, vitamin D3, Legal history: None Family psychiatric history: Anxiety-mother history: None Social history: Patient grew up in [place] and reports that she was raised by her parents. She has 1 brother and 1 sister. She had reported being an average student in school and had reported no history of a learning disorder. She had endorsed a history of difficulties with concentration and school. She had ultimately graduated from high school. She had reported no prior history of sexual physical or emotional abuse. Patient currently works at a penitentiary locally and lives in [place] with her boyfriend and 6-year-old child. Involuntary Hold Information Hold Status: Date/Time Hold Expires: voluntary Mental Status Exam MSE Comments: The patient is a casually dressed overweight female who appears her stated age with fair eye contact and normal gait. Her hygiene was fair. There was no evidence of any abnormal involuntary motor movements, tics, or tremors appreciated. Her speech was productive and normal in regards to rate, rhythm, and prosody. Her mood was described as better. Her affect appeared somewhat euthymic. Her thought process was linear, logical, and organized. Her thought content revealed no active suicidal or homicidal ideation. There was no evidence of any delusional thinking. She did not appear to be responding to internal stimuli. Her attention span appeared poor as she appeared easily distracted. She was alert and oriented to person, place, time, and situation. Her recent and remote memory appear grossly intact. Her insight was limited but improving. Her judgment appeared improving. Her impulse control appeared to be improving. Discharge Data Studies Completed and Pending: Laboratory Results WBC 8.15 10^3/uL (3.2 9-11.43) 11/08/25 20:09 RBC 4.76 10^6/uL (3.8 5-5.65) 11/08/25 20:09 Hgb 13.60 g/dL (11.27 -16.99) 11/08/25 20:09 Hct 41.6 % (36-47) 11/08/25 20:09 MCV 87.4 fl (85-98) 11/08/25 20:09 MCH 28.6 pg (27-33) 11/08/25 20:09 MCHC 32.7 g/dL (30-55) 11/08/25 20:09 RDW 11.9 % (12.1-15.1 ) L 11/08/25 20:09 Plt Count 265 10^3/cmm (157 -399) 11/08/25 20:09 MPV 10.0 fL (7.4-10.4 ) 11/08/25 20:09 Neut % (Auto) 75.5 % 11/08/25 20:09 Lymph % (Auto) 19.1 % 11/08/25 20:09 Bowie % (Auto) 4.3 % 11/08/25 20:09 Eos % (Auto) 0.5 % 11/08/25 20:09 Baso % (Auto) 0.4 % 11/08/25 20:09 Neut # (Auto) 6.15 10^3/uL (1.8 -7.7) 11/08/25 20:09 Lymph # (Auto) 1.6 10^3/uL (0.8- 4.8) 11/08/25 20:09 Bowie # (Auto) 0.4 10^3/uL (0.2- 0.9) 11/08/25 20:09 Eos # (Auto) 0.0 10^3/uL (0.0- 0.8) 11/08/25 20:09 Baso # (Auto) 0.0 10^3/uL (0.0- 0.1) 11/08/25 20:09 Nucleated RBC % (a uto) 0 % 11/08/25 20:09 Nucleated RBCs # 0.0 /100WBC 11/08/25 20:09 Sodium 140 mmol/L (136-1 45) 11/08/25 20:09 Potassium 3.7 mmol/L (3.5-5 .1) 11/08/25 20:09 Chloride 104 mmol/L (98-10 7) 11/08/25 20:09 Carbon Dioxide 23 mmol/L (22-29) 11/08/25 20:09 Anion Gap 16.7 (5-19) 11/08/25 20:09 BUN 15 mg/dL (6-20) 11/08/25 20:09 Creatinine 0.8 mg/dL (0.5-0. 9) 11/08/25 20:09 GFR Calculation 77.2 mL/min (90-1 30) L 11/08/25 20:09 Glucose 115 mg/dL (65-115 ) 11/08/25 20:09 Calculated Osmolal ity 292 mOsm/kg (285- 295) 11/08/25 20:09 Calcium 8.6 mg/dL (8.5-10 .5) 11/08/25 20:09 Total Bilirubin 0.4 mg/dL (0.15-1 .2) 11/08/25 20:09 AST 16 U/L (0-32) 11/08/25 20:09 ALT 14 U/L (0-33) 11/08/25 20:09 Alkaline Phosphata se 74 U/L (35-105) 11/08/25 20:09 Total Protein 6.6 g/dL (6.6-8.7 ) 11/08/25 20:09 Albumin 4.2 g/dL (3.5-5.2 ) 11/08/25 20:09 Globulin 2.4 g/dL (1.3-4.6 ) 11/08/25 20:09 Salicylates 0.8 mg/dL (3-10) L 11/08/25 20:09 Urine Opiates Scre en Negative ng/mL (N egative) 11/09/25 05:27 Acetaminophen < 5.0 ug/mL (10-3 0) L 11/08/25 20:09 Ur Barbiturates Sc reen Negative ng/mL (N egative) 11/09/25 05:27 Ur Phencyclidine S crn Negative ng/mL (N egative) 11/09/25 05:27 Ur Amphetamines Sc reen Negative ng/mL (N egative) 11/09/25 05:27 U Benzodiazepines Scrn Negative ng/mL (N egative) 11/09/25 05:27 Urine Cocaine Scre en Negative ng/mL (N egative) 11/09/25 05:27 U Marijuana (THC) Screen Negative ng/mL (N egative) 11/09/25 05:27 Ethyl Alcohol 12 mg/dL (0-10) H 11/08/25 20:09 Vitals: Last Vital Signs Temp 97.8 F 11/11/25 20:18 Pulse 93 11/11/25 20:18 Resp 18 11/11/25 20:18 BP 147/90 11/11/25 20:18 Pulse Ox 95 11/11/25 20:18 O2 Del Method Room Air 11/11/25 20:18 Discharge Plan Discharge Patient Disposition: Home Condition: Stable Prescriptions: New sertraline 50 mg Tablet 50 mg PO DAILY 30 Days Qty: 30 1RF Continued ibuprofen 600 mg tablet 600 mg PO Q6H sumatriptan succinate [Imitrex] 50 mg tablet 50 mg PO PER PKG DIR PRN (Reason: Migraine) Ozempic 0.25 mg or 0.5 mg (2 mg/3 mL) pen injector 0.5 mg SUBCUT .once weekly Qty: 3 2RF cholecalciferol (vitamin D3) 1,250 mcg (50,000 unit) capsule 50,000 unit PO Q7D Qty: 4 2RF atorvastatin 20 mg tablet 20 mg PO DAILY 30 Days Qty: 30 5RF levothyroxine 50 mcg tablet 50 mcg PO DAILY Qty: 30 5RF meloxicam 15 mg tablet 15 mg PO DAILY 30 Days Qty: 30 5RF Prilosec OTC 20 mg tablet,delayed release (DR/EC) 20 mg PO DAILY 30 Days Qty: 30 5RF modafinil [Provigil] 100 mg tablet 200 mg PO QAM Qty: 60 3RF Rx Instructions: Take two tablets every morning naproxen [Naprosyn] 500 mg tablet 500 mg PO BID PRN (Reason: pain) Qty: 20 0RF Discontinued divalproex [Depakote] 500 mg tablet,delayed release (DR/EC) 500 mg PO .7 pm Qty: 30 4RF Rx Instructions: Take one tablet at 7 pm Discharge Order = DC NOW: Discharge Order (Routine); Ordered 11/12/25 Ordered By: Rudy Norris Referrals: Pamella Masterson FNP-C [Primary Care Provider, Family Practice] Chantel Grace PMHNP [Staff Physician, Psychiatry] - 11/29/25 3:45 pm Discharge Diet: Regular Discharge Activity: Resume usual activity Patient Instructions: Opioid Safety, Patient Portal & Pr[facility]anna Instructions Discharge Attestations NPU Time Spent in Discharge Care*: less than 30 min Specific Discharge Activities: Specific discharge activities: educating patient, discussing with residential case manager/social workers/dc planners, documenting/other paperwork and evaluating patient/reviewing data Coding Level of Care Code Acute Code for g Fwd Diagnoses Generalized anxiety disorder F41.1 Suicidal ideation R45.851 ADHD (attention deficit hyperactivity disorder), combined type F90.2 MDD (major depressive disorder), recurrent episode, moderate F33.1
[2025-11-12 12:36] VITALS: BP 125/78; PULSE 91; RESP 20; TEMP 36.7; O2SAT 97
[2025-11-12 12:50] VITALS: BP 125/78; PULSE 91; RESP 20; TEMP 36.7; O2SAT 97
== END 2025-11-12 14:25 | disposition home or self-care (01) | DRG 751 ==
LOC: ER 21:08 → NP 21:29
PROVIDERS: Admitting Provider Psychiatry & Neurology Psychiatry; Emergency Provider Physician Assistant; PCP Nurse Practitioner Family; Visit Provider Psychiatry & Neurology Psychiatry
DX: F33.1 Major depressive disorder, recurrent, moderate (principal); F41.1 Generalized anxiety disorder; R45.851 Suicidal ideations; F90.2 Attention-deficit hyperactivity disorder, combined type; E66.3 Overweight; Z68.39 Body mass index [BMI] 39.0-39.9, adult; E03.9 Hypothyroidism, unspecified; K21.9 Gastro-esophageal reflux disease without esophagitis; E78.5 Hyperlipidemia, unspecified
CPT/HCPCS: 36415; 80053; 80306; 80307; 85025; 93005; 97150; 97165; 99285; J9999